=== PATIENT | female | born 1965 | race American Indian/Alaskan Native ===

== ENCOUNTER 2017-04-01 16:14 | Inpatient (IN) | payer OTHER, MEDICAID ==
[2017-04-01] MEDS ORDERED: hydrALAZINE 20 MG/ML SDV IVPUSH ONE (16:52)
[2017-04-01] MEDS ORDERED: HYDROmorphone 1 MG/ML Syringe IVPUSH ONE ×2 (16:53→17:45)
[2017-04-01] MEDS ORDERED: Ondansetron 4 MG/2 ML SDV IV ONE (16:53)
[2017-04-01] MEDS: Sodium Chloride 0.9% 10 ML Syringe FLUSH PRN ×2 (16:55→18:59)
[2017-04-01] MEDS ORDERED: Vancomycin 500 MG SDV IV ONE (16:55)
[2017-04-01 17:27] LABS: CHLORIDE,CL 99 mmol/L (101-111); SODIUM,NA 137 mmol/L (135-145)
[2017-04-01] MEDS ORDERED: Piperacillin/Tazobactam 3.375 GM in Sodium Chloride 0.9% 100 ML IV ONE (17:46)
--- NOTE | 2017-04-01 18:17 | EDM.PDOC ---
Scribed by Marlene Steward 04/01/17 [id number] for Henri Grajeda MD ED HPI GENERAL MEDICAL PROBLEM - General Chief Complaint: Lower Extremity Injury/Pain Stated Complaint: SENT FROM [facility] AT [facility], HIGH BP, [id number] Time Seen by Provider: 04/01/17 16:45 Source of Information: Reports: Patient, RN, RN Notes Reviewed History Limitations: Reports: No Limitations - History of Present Illness INITIAL COMMENTS - FREE TEXT/NARRATIVE: Sent from clinic for evaluation of accelerated hypertension with BP 215/220, 105 -110. Patient complained of pain and redness with swelling to chin that began yesterday after she tried to squeeze a pimple. Report fever and pain to chin and lower face. Location: Reports: Face Quality: Reports: Ache Severity: Severe Improves with: Reports: None Worsens with: Reports: None Associated Symptoms: Reports: No Other Symptoms - Related Data Allergies Allergy/AdvReac Type Severity Reaction Status Date / Time bupropion HCl Allergy Anxiety Verified 04/01/17 18:16 [From Wellbutrin] buspirone HCl [From BuSpar] Allergy Anxiety Verified 04/01/17 18:16 venlafaxine HCl Allergy Anxiety Verified 04/01/17 18:16 [From Effexor] Home Meds: Home Meds amLODIPine [Norvasc] 1 tab PO DAILY 03/08/15 [History] atorvaSTATin [Lipitor] 1 tab PO DAILY 03/08/15 [History] Acetaminophen [Tylenol Extra Strength] 1,000 mg PO Q6H PRN 03/10/15 [History] Albuterol [Proventil HFA] 1 puff INH QID PRN 03/10/15 [History] Cyclobenzaprine [Flexeril] 10 mg PO DAILY 04/01/17 [History] Past Medical History Cardiovascular History: Reports: High Cholesterol, Hypertension Respiratory History: Reports: Asthma Other Genitourinary History: ureteral stent Musculoskeletal History: Reports: Back Pain, Chronic, Fracture Other Musculoskeletal History: fibromyalgia Psychiatric History: Reports: Anxiety - Past Surgical History Female Surgical History: Reports: Section Musculoskeletal Surgical History: Reports: Carpal Tunnel Social & Family History - Tobacco Use Smoking Status *Q: Current Every Day Smoker Years of Tobacco use: 30 Packs/Tins Daily: 1 Used Tobacco, but Quit: No Second Hand Smoke Exposure: Yes - Alcohol Use Days Per Week of Alcohol Use: 0 Number of Drinks Per Day: 8 Total Drinks Per Week: 0 - Recreational Drug Use Recreational Drug Use: No Drug Use in Last 12 Months: No - Living Situation & Occupation Living situation: Reports: , with Family Occupation: Employed ED ROS GENERAL - Review of Systems Review Of Systems: ROS reveals no pertinent complaints other than HPI. ED EXAM, GENERAL - Physical Exam Exam: See Below Exam Limited By: No Limitations General Appearance: Alert, WD/WN, No Apparent Distress, Obese Eye Exam: Bilateral Eye: Normal Inspection Ears: Normal External Exam, Normal Canal, Hearing Grossly Normal, Normal TMs Nose: Normal Inspection, Normal Mucosa, No Blood Throat/Mouth: Normal Inspection, Normal Lips, Normal Teeth, Normal Gums, Normal Oropharynx, Normal Voice, No Airway Compromise Head: Other (Swelling to chin with erythema 3-4mm pustules and erythema with tenderness externally approximately 6-8cm to submanidbular jowel and bilateral mandibular face. ) Neck: Normal Inspection Respiratory/Chest: No Respiratory Distress, Lungs Clear, Normal Breath Sounds, No Accessory Muscle Use, Chest Non-Tender Cardiovascular: Regular Rate, Rhythm, Tachycardia GI/Abdominal: Other (benign obese abdomen) (Female) Exam: Deferred Rectal (Female) Exam: Deferred Back Exam: Normal Inspection, Full Range of Motion, NT Extremities: Normal Inspection, Normal Range of Motion, Non-Tender, Normal Capillary Refill, No Pedal Edema Neurological: Alert, Oriented, CN II-XII Intact, Normal Cognition, Normal Gait, Normal Reflexes, No Motor/Sensory Deficits Psychiatric: Normal Affect, Normal Mood Course - Vital Signs Last Recorded V/S: Last Vital Signs Temp 36.8 C 04/01/17 16:24 Pulse 110 H 04/01/17 17:07 Resp 18 04/01/17 17:07 BP 163/85 H 04/01/17 17:07 Pulse Ox 97 04/01/17 17:07 - Orders/Labs/Meds Orders: Active Orders 24 hr Category Date Time Status Peripheral IV Care [RC] . DIRECTED Care 04/01/17 16:50 Active CULTURE BLOOD [BC] Stat Lab 04/01/17 16:54 Received CULTURE BLOOD [BC] Stat Lab 04/01/17 16:59 Received CULTURE WOUND [RM] Stat Lab 04/01/17 16:59 Received Sodium Chloride 0.9% [Saline Flush] Med 04/01/17 16:50 Active 10 ml FLUSH ASDIRECTED PRN Blood Culture x2 Reflex Set [OM.PC] Stat Oth 04/01/17 16:50 Ordered Peripheral IV Insertion Adult [OM.PC] Stat Ot 04/01/17 16:50 Ordered Medication Orders Sodium Chloride (Saline Flush) 10 ml FLUSH ASDIRECTED PRN PRN Reason: Keep Vein Open Last Admin: 04/01/17 16:55 Dose: 10 ml Labs: Laboratory Tests 04/01/17 04/01/17 04/01/17 Range/Units 16:59 16:59 16:59 WBC 19.7 H (5.0-10.0) 10^3/uL RBC 4.79 (4.2-5.4) 10^6/uL Hgb 13.6 (12.0-16.0) g/dL Hct 40.9 (37.0-47.0) % MCV 85.4 (80-100) fL MCH 28.4 (27.0-34.0) pg MCHC 33.3 (33.0-35.0) g/dL Plt Count 482 H (150-450) 10^3/uL Neut % (Auto) 71.8 (42.2-75.2) % Lymph % (Auto) 18.0 L (20.5-50.1) % Millard % (Auto) 8.1 H (2-8) % Eos % (Auto) 1.9 (1.0-3.0) % Baso % (Auto) 0.2 (0.0-1.0) % Sodium 137 (135-145) mmol/L Potassium 3.1 L (3.6-5.0) mmol/L Chloride 99 L (101-111) mmol/L Carbon Dioxide 24.0 (21.0-31.0) mmol/L Anion Gap 17.1 BUN 8 (7-18) mg/dL Creatinine 0.6 (0.6-1.3) mg/dL Est Cr Clr Drug Dosing 100.94 mL/min Estimated GFR (MDRD) > 60 BUN/Creatinine Ratio 13.33 Glucose 135 H (74-105) mg/dL Lactic Acid 1.5 (0.5-2.2) mmol/L Calcium 9.1 (8.4-10.2) mg/dl Total Bilirubin 0.5 (0.2-1.0) mg/dL AST 19 (10-42) IU/L ALT 19 (10-60) IU/L Alkaline Phosphatase 110 (42-121) IU/L C-Reactive Protein (0.0-1.3) mg/dL Total Protein 8.3 H (6.7-8.2) g/dl Albumin 4.1 (3.2-5.5) g/dl Globulin 4.2 Albumin/Globulin Ratio 0.98 // Range/Units 16:59 WBC (5.0-10.0) 10^3/uL RBC (4.2-5.4) 10^6/uL Hgb (12.0-16.0) g/dL Hct (37.0-47.0) % MCV (80-100) fL MCH (27.0-34.0) pg MCHC (33.0-35.0) g/dL Plt Count (150-450) 10^3/uL Neut % (Auto) (42.2-75.2) % Lymph % (Auto) (20.5-50.1) % Millard % (Auto) (2-8) % Eos % (Auto) (1.0-3.0) % Baso % (Auto) (0.0-1.0) % Sodium (135-145) mmol/L Potassium (3.6-5.0) mmol/L Chloride (101-111) mmol/L Carbon Dioxide (21.0-31.0) mmol/L Anion Gap BUN (7-18) mg/dL Creatinine (0.6-1.3) mg/dL Est Cr Clr Drug Dosing mL/min Estimated GFR (MDRD) BUN/Creatinine Ratio Glucose (74-105) mg/dL Lactic Acid (0.5-2.2) mmol/L Calcium (8.4-10.2) mg/dl Total Bilirubin (0.2-1.0) mg/dL AST (10-42) IU/L ALT (10-60) IU/L Alkaline Phosphatase (42-121) IU/L C-Reactive Protein 3.5 H (0.0-1.3) mg/dL Total Protein (6.7-8.2) g/dl Albumin (3.2-5.5) g/dl Globulin Albumin/Globulin Ratio Meds: Medications Generic Name Dose Route Start Last Admin Trade Name Freq PRN Reason Stop Dose Admin Sodium Chloride 10 ml 04/01/17 16:50 04/01/17 16:55 Saline Flush FLUSH 10 ml ASDIRECTED PRN Administration Keep Vein Open Discontinued Medications Generic Name Dose Route Start Last Admin Trade Name Freq PRN Reason Stop Dose Admin Hydralazine HCl 20 mg 04/01/17 16:52 04/01/17 16:58 Apresoline IVPUSH 04/01/17 16:53 20 mg ONETIME ONE Administration Hydromorphone HCl 1 mg 04/01/17 16:53 04/01/17 16:58 Dilaudid IVPUSH 04/01/17 16:54 1 mg ONETIME ONE Administration Hydromorphone HCl 1 mg 04/01/17 17:45 04/01/17 17:53 Dilaudid IVPUSH 04/01/17 17:46 1 mg ONETIME ONE Administration Piperacillin Sod/Tazobactam 100 mls @ 200 mls/hr 04/01/17 17:46 Sod 3.375 gm/ Sodium Chloride IV 04/01/17 18:15 ONETIME ONE Ondansetron HCl 4 mg 04/01/17 16:53 04/01/17 16:58 Zofran IV 04/01/17 16:54 4 mg ONETIME ONE Administration Vancomycin HCl 1,650 mg 04/01/17 16:55 04/01/17 17:12 Vancomycin IV 04/01/17 16:56 1,650 mg ONETIME ONE Administration Departure - Departure Time of Disposition: 17:42 ((Admit to Dr. Morrison)) Disposition: Admitted As Inpatient 67 Condition: Serious Clinical Impression: Facial cellulitis, Accelerated hypertension - Discharge Information - My Orders Last 24 Hours: My Active Orders 04/01/17 16:50 Peripheral IV Care [RC] . DIRECTED Sodium Chloride 0.9% [Saline Flush] 10 ml FLUSH ASDIRECTED PRN Blood Culture x2 Reflex Set [OM.PC] Stat Peripheral IV Insertion Adult [OM.PC] Stat 04/01/17 16:54 CULTURE BLOOD [BC] Stat 04/01/17 16:59 CULTURE BLOOD [BC] Stat CULTURE WOUND [RM] Stat - Assessment/Plan Last 24 Hours: My Active Orders 04/01/17 16:50 Peripheral IV Care [RC] . DIRECTED Sodium Chloride 0.9% [Saline Flush] 10 ml FLUSH ASDIRECTED PRN Blood Culture x2 Reflex Set [OM.PC] Stat Peripheral IV Insertion Adult [OM.PC] Stat 04/01/17 16:54 CULTURE BLOOD [BC] Stat 04/01/17 16:59 CULTURE BLOOD [BC] Stat CULTURE WOUND [RM] Stat I have read and agree with the documentation that has been completed regarding this visit. By signing this record, I attest that the documentation was completed in my physical presence and is an accurate record of the encounter.
[2017-04-01] MEDS ORDERED: Magnesium Hydroxide 400 MG/5 ML Susp 30 ML Cup PO PRN (18:38)
[2017-04-01] MEDS ORDERED: Docusate Sodium 100 MG Cap PO PRN (18:38)
[2017-04-01] MEDS ORDERED: Albuterol 0.083% 2.5 MG/3 ML Neb Soln NEB PRN (18:38)
[2017-04-01] MEDS ORDERED: Zolpidem 5 MG Tab PO PRN (18:38)
[2017-04-01] MEDS ORDERED: Ondansetron 4 MG Tab.DIS PO PRN (18:38)
[2017-04-01] MEDS ORDERED: Polyethylene Glycol 3350 Powder 17 GM Packet PO PRN (18:38)
[2017-04-01] MEDS ORDERED: hydrALAZINE 20 MG/ML SDV IVPUSH PRN (18:41)
[2017-04-01] MEDS ORDERED: cloNIDine 0.1 MG Tab PO PRN (18:41)
[2017-04-01] MEDS ORDERED: Albuterol 6.7 GM Inhaler INH PRN (18:41)
[2017-04-01] MEDS ORDERED: Potassium Chloride 10 MEQ Tab.ER PO SCH (18:45)
[2017-04-01] MEDS ORDERED: NS + KCl 20mEq/L 1,000 ML IV SCH (18:45)
[2017-04-01] MEDS: Morphine 2 MG/ML Syringe IVPUSH PRN ×2 (18:59→21:40)
[2017-04-01] MEDS: Acetaminophen 500 MG Tab PO PRN (20:02)
[2017-04-01] MEDS: Piperacillin/Tazobactam 3.375 GM in Sodium Chloride 0.9% 100 ML IV SCH (21:46)
[2017-04-01] MEDS: Acetaminophen/oxyCODONE 325-5 MG Tab PO PRN (23:57)
[2017-04-02] MEDS: Morphine 2 MG/ML Syringe IVPUSH PRN ×3 (00:20→05:23)
--- NOTE | 2017-04-02 00:21 | HP ---
CHIEF COMPLAINT: Uncontrolled hypertension along with pain to the chin area. HISTORY OF PRESENT ILLNESS: Mrs. Jaron Armstrong is a 51-year-old female with medical history significant for hypertension, hyperlipidemia, depression, anxiety, impaired glucose tolerance in the past, nephrolithiasis, seasonal allergies, history of pyelonephritis in the past, eventually presented to the clinic today with complaints of chin pain and was noted to have uncontrolled hypertension. She was later transferred to the emergency room. While in the emergency room, she was noted to have acute cellulitis involving the chin and uncontrolled hypertension requiring admission to the hospital. At this time, the patient claims that she noticed some pain in the chin area last night around 7:00 p.m. She usually works in the [employer] and she works at night, so she slept and woke up late in the evening and noticed this swelling, which has been progressively getting worse since yesterday. She complains of increasing pain. She grades the pain as 8/10 in intensity, which is sharp in nature, aggravated on palpation, relieved partially with pain medication, radiating towards the upper cheek area associated with nausea, but no vomiting. Denies any fevers or chills, but she was noted to have mild sweating at home, for which she took some medication. She denies any ongoing chest pain, no shortness of breath, no abdominal pain, no vomiting, no diarrhea. She had history of similar complaints in the past where she had some pimple on the nose, but it was self-resolved, but this is much worse than her previous experience. The patient denied any history of chest pains on exertion. No history of dyspnea on exertion. No history of orthopnea or paroxysmal nocturnal dyspnea. The patient denied any history of hematemesis, hematochezia, or melanotic stools. Normal bowel and bladder habits otherwise. REVIEW OF SYSTEMS: A complete review of system including skin, ear, nose, and throat, cardiovascular system, respiratory system, gastrointestinal system, genitourinary system, hematology, oncology, neurology, allergy, immunology, constitutional were all evaluated and were negative except for the above-said notes. PAST MEDICAL HISTORY: Significant for hypertension, hyperlipidemia, nephrolithiasis, pyelonephritis, low back pain, impaired glucose tolerance in the past, chronic tobacco use, alcohol use. PAST SURGICAL HISTORY: Significant for carpal tunnel release, cystoscopy, hernia repair, laparoscopic cholecystectomy, laparotomy, section, spinal lumbar laminectomy, and microdiskectomy. FAMILY HISTORY: Significant for diabetes in her mother. Coronary artery disease and hypertension in her father. Bipolar disorder and anxiety disorder in her son. SOCIAL HISTORY: The patient is everyday smoker, smokes at least 1 pack of cigarette a day. History of occasional alcohol intake. ALLERGIES: The patient noted to have allergies to BuSpar and Effexor. PHYSICAL EXAMINATION: Vital Signs: Temperature of 98.2, pulse of 110, blood pressure 163/85, saturating at 97% on room air, respiratory rate of 18. General Appearance: The patient is well oriented to time, place, and person. Follows commands spontaneously. Cardiovascular System: S1, S2 heard with normal intensity. No gallops. Respiratory System: Clear to auscultation bilaterally. No wheeze. No crepitations. Abdomen: Soft. Bowel sounds positive. Nontender. No rigidity. Extremities: No edema in bilateral lower extremities. Neurology: No gross focal neurological deficit. Head and Neck: The patient is noted to have erythema, tenderness, and swelling to the lower chin part. She has secretions noted from the chin site, yellow in color. LABORATORY DATA: WBC 19.7, hemoglobin 13.6, hematocrit 40.9, platelet count 482. Sodium 137, potassium 3.1, chloride 99, bicarb 24, BUN 8, creatinine 0.6, glucose 135, lactic acid 1.5, AST 19, ALT 19. HOME MEDICATIONS: Home medications include: 1. Lipitor 1 tablet daily. 2. Norvasc 1 tablet daily. 3. Flexeril 10 mg daily. 4. Albuterol inhalation as needed 4 times a day. 5. Tylenol Extra Strength every 6 hours as needed for pain. ASSESSMENT: 1. Cellulitis involving the chin area. 2. Hypertension, uncontrolled. 3. Hyperlipidemia. 4. History of anxiety and depression. PLAN: 1. Cellulitis: The patient is noted to have cellulitis involving the chin area. We will start her on broad-spectrum antibiotics Zosyn and vancomycin. The patient had history of cellulitis in the past. We will obtain wound culture. She is noted to have mild secretions from the chin site. We will obtain blood cultures. Follow the culture reports and titrate the antibiotics as appropriate. 2. Hypertension, uncontrolled: The patient noted to have elevated blood pressure. She is just on Norvasc. We will continue with the Norvasc. We will have her on clonidine 0.1 mg every 4 hours as needed for systolic blood pressure greater than 160. We will add IV hydralazine 10 mg every 6 hourly for systolic blood pressure greater than 180, and we will closely follow the patient and titrate up the medication to optimize the blood pressure. Uncontrolled blood pressure could be resulting from the pain. 3. Pain: The patient is complaining of increasing pain. We will have her on IV morphine and oral Percocet for better pain control. 4. Hypokalemia: The patient is noted have mild hypokalemia with potassium of 3.1. We will replace with oral potassium chloride. 5. DVT prophylaxis: We will have her on Lovenox for DVT prophylaxis. 6. Code Status: The patient wants to be full code. Discussed with Dr. Grajeda, ER physician, regarding the plan of care. Discussed with the patient regarding the plan of care, reviewed the labs and medications, reviewed the old charts. [facility] /[id number]
[2017-04-02] MEDS: Acetaminophen/oxyCODONE 325-5 MG Tab PO PRN ×5 (05:21→23:05)
[2017-04-02] MEDS: Piperacillin/Tazobactam 3.375 GM in Sodium Chloride 0.9% 100 ML IV SCH ×3 (05:30→22:53)
[2017-04-02 07:12] LABS: CHLORIDE,CL 102 mmol/L (101-111); SODIUM,NA 138 mmol/L (135-145)
--- NOTE | 2017-04-02 09:55 | PCM.PN ---
- General Info Date of Service: 04/02/17 Admission Dx/Problem (Free Text): Patient was admitted for chin infection. The symptoms of the swelling and pain in the chin started on 03/31/17. Today patient states that pain is better but's the swelling has not changed. She is on opiates for pain as needed. She has temp of 100.5 Fahrenheit this morning but the room temp was 80. She denies feeling feverish, chills, nausea, vomiting, chest pain, shortness breath, abdominal pain, diarrhea, any other symptoms or concerns. She is drinking and eating normally. - Review of Systems General: Reports: No Symptoms HEENT: Denies: dysphasia, ear pain, eye pain Pulmonary: Reports: no symptoms Cardiovascular: Reports: No Symptoms Gastrointestinal: Reports: No symptoms Genitourinary: Reports: no symptoms Musculoskeletal: Reports: no symptoms - Patient Data Vitals - most recent: Last Vital Signs Temp 37.3 C 04/02/17 07:23 Pulse 96 04/02/17 07:23 Resp 20 04/02/17 07:23 BP 133/69 04/02/17 07:23 Pulse Ox 95 04/02/17 07:23 Weight - most recent: 108.771 kg I&O - last 24 hours: Intake & Output 04/01/17 04/02/17 04/02/17 22:59 06:59 14:59 Intake Total 1695 1316 Output Total 600 1800 Balance 1095 -484 Lab Results last 24 hrs: Laboratory Results - last 24 hr 04/01/17 04/02/17 04/02/17 Range/Units 22:18 06:35 06:35 WBC 12.0 H (5.0-10.0) 10^3/uL RBC 4.25 (4.2-5.4) 10^6/uL Hgb 12.0 (12.0-16.0) g/dL Hct 36.9 L (37.0-47.0) % MCV 86.8 (80-100) fL MCH 28.2 (27.0-34.0) pg MCHC 32.5 L (33.0-35.0) g/dL Plt Count 454 H (150-450) 10^3/uL Sodium 138 (135-145) mmol/L Potassium 3.7 (3.6-5.0) mmol/L Chloride 102 (101-111) mmol/L Carbon Dioxide 25.0 (21.0-31.0) mmol/L Anion Gap 14.7 BUN 8 (7-18) mg/dL Creatinine 0.7 (0.6-1.3) mg/dL Est Cr Clr Drug Dosing 86.52 mL/min Estimated GFR (MDRD) > 60 Glucose 122 H (74-105) mg/dL Lactic Acid 1.2 (0.5-2.2) mmol/L Calcium 8.6 (8.4-10.2) mg/dl Med Orders - Current: Current Medications Acetaminophen (Tylenol Extra Strength) 1,000 mg PO Q6H PRN PRN Reason: Pain Last Admin: 04/01/17 20:02 Dose: 1,000 mg Albuterol (Proventil Neb Soln) 2.5 mg NEB Q2H PRN PRN Reason: shortness of breath/wheezing Albuterol (Proventil Hfa) 0 gm INH QID PRN PRN Reason: Shortness of Breath Amlodipine Besylate (Norvasc) 5 mg PO DAILY [facility] Atorvastatin Calcium (Lipitor) 10 mg PO DAILY [facility] Clonidine HCl (Catapres) 0.1 mg PO Q4HR PRN PRN Reason: Hypertension Last Admin: 04/01/17 20:03 Dose: 0.1 mg Cyclobenzaprine HCl (Flexeril) 10 mg PO DAILY [facility] Docusate Sodium (Colace) 100 mg PO BID PRN PRN Reason: Constipation Enoxaparin Sodium (Lovenox) 40 mg SUBCUT DAILY [facility] Hydralazine HCl (Apresoline) 10 mg IVPUSH Q6H PRN PRN Reason: Hypertension Piperacillin Sod/Tazobactam (Sod 3.375 gm/ Sodium Chloride) 100 mls @ 200 mls/ hr IV Q8HR [facility] Last Admin: 04/02/17 05:30 Dose: 200 mls/hr Potassium Chloride/Sodium Chloride (Normal Saline With 20 Meq Kcl) 1,000 mls @ 75 mls/hr IV ASDIRECTED [facility] Last Admin: 04/01/17 19:38 Dose: 75 mls/hr Vancomycin HCl 1.25 gm/ Sodium (Chloride) 250 mls @ 166.667 mls/hr IV Q12H [facility] Last Admin: 04/02/17 06:33 Dose: 166.667 mls/hr Magnesium Hydroxide (Milk Of Magnesia) 30 ml PO Q12H PRN PRN Reason: Constipation Morphine Sulfate (Morphine) 2 mg IVPUSH Q2H PRN PRN Reason: Pain (severe 7-10) Last Admin: 04/02/17 05:23 Dose: 2 mg Ondansetron HCl (Zofran Odt) 4 mg PO Q4H PRN PRN Reason: nausea, able to take PO Oxycodone/Acetaminophen (Percocet 325-5 Mg) 1 tab PO Q4H PRN PRN Reason: Pain (moderate 4-6) Last Admin: 04/02/17 09:33 Dose: 1 tab Polyethylene Glycol (Miralax) 17 gm PO DAILY PRN PRN Reason: Constipation Sodium Chloride (Saline Flush) 10 ml FLUSH ASDIRECTED PRN PRN Reason: Keep Vein Open Last Admin: 04/01/17 18:59 Dose: 10 ml Vancomycin HCl (Pharmacy To Dose - Vancomycin) 1 dose .XX ASDIRECTED SHEYLA Zolpidem Tartrate (Ambien) 5 mg PO BEDTIME PRN PRN Reason: Sleep Last Admin: 04/01/17 21:46 Dose: 5 mg Discontinued Medications Hydralazine HCl (Apresoline) 20 mg IVPUSH ONETIME ONE Stop: 04/01/17 16:53 Last Admin: 04/01/17 16:58 Dose: 20 mg Hydromorphone HCl (Dilaudid) 1 mg IVPUSH ONETIME ONE Stop: 04/01/17 16:54 Last Admin: 04/01/17 16:58 Dose: 1 mg Hydromorphone HCl (Dilaudid) 1 mg IVPUSH ONETIME ONE Stop: 04/01/17 17:46 Last Admin: 04/01/17 17:53 Dose: 1 mg Piperacillin Sod/Tazobactam (Sod 3.375 gm/ Sodium Chloride) 100 mls @ 200 mls/ hr IV ONETIME ONE Stop: 04/01/17 18:15 Last Admin: 04/01/17 19:41 Dose: 200 mls/hr Ondansetron HCl (Zofran) 4 mg IV ONETIME ONE Stop: 04/01/17 16:54 Last Admin: 04/01/17 16:58 Dose: 4 mg Potassium Chloride (Klor-Con 10) 20 meq PO TIDMEALS SHEYLA Last Admin: 04/01/17 20:01 Dose: 20 meq Vancomycin HCl (Vancomycin) 1,650 mg IV ONETIME ONE Stop: 04/01/17 16:56 Last Admin: 04/01/17 17:12 Dose: 1,650 mg - Exam General: alert, oriented, cooperative, no acute distress. No: mild distress, moderate distress, severe distress, sedated, lethargic, obtunded HEENT: Pupils equal, Pupils reactive, EOMI, Mucous membr. moist/pink, Other ( Lower chin swelling and redness appreciated) Neck: supple, trachea midline, no JVD Lungs: Clear to auscultation, Normal respiratory effort Cardiovascular: Regular Rate, Regular Rhythm Abdomen: bowel sounds present, soft, no tenderness, no distension Extremities: no edema, normal pulses Psy/Mental Status: normal affect, normal mood - Problem List & Annotations (1) Hypokalemia SNOMED Code(s): 22897212 Code(s): E87.6 - HYPOKALEMIA Status: Acute Current Visit: Yes (2) Accelerated hypertension SNOMED Code(s): 51825977 Code(s): I10 - ESSENTIAL (PRIMARY) HYPERTENSION Status: Acute Current Visit: Yes (3) Facial cellulitis SNOMED Code(s): 299697387 Code(s): L03.211 - CELLULITIS OF FACE Status: Acute Current Visit: Yes - Problem List Review Problem List Initiated/Reviewed/Updated: Yes - My Orders Last 24 Hours: My Active Orders 04/03/17 05:11 BASIC METABOLIC PANEL,BMP [CHEM] AM CBC WITH AUTO DIFF [HEME] AM CRP [C-REACTIVE PROTEIN] [CHEM] AM - Plan Plan:: Facial cellulitis Continue with Zosyn and vancomycin Awaiting blood cultures Continue pain management as per order Leukocytosis, most likely from cellulitis WBC on admission were 19.7 Trending downwards to 12.0 today Essential benign Hypertension -Was elevated yesterday We'll continue with Norvasc that she takes at home Continue his clonidine and hydralazine as needed for systolic blood pressure greater than 160 Monitor blood pressure Facial pain from cellulitis Continue with Percocet and IV morphine as needed for pain Hypokalemia Resolved Replaced orally Continue Lovenox for DVT prophylaxis
[2017-04-02] MEDS: Enoxaparin 40 MG/0.4 ML Syringe SUBCUT SCH (09:56)
[2017-04-02] MEDS: amLODIPine 5 MG Tab PO SCH (09:57)
[2017-04-02] MEDS: Cyclobenzaprine 10 MG Tab PO SCH (09:57)
[2017-04-02] MEDS: atorvaSTATin 10 MG Tab PO SCH (09:57)
[2017-04-02] MEDS: Acetaminophen 500 MG Tab PO PRN (21:02)
[2017-04-03] MEDS: Acetaminophen/oxyCODONE 325-5 MG Tab PO PRN (03:18)
[2017-04-03] MEDS: Acetaminophen 500 MG Tab PO PRN (05:27)
[2017-04-03 06:45] LABS: CHLORIDE,CL 104 mmol/L (101-111); SODIUM,NA 141 mmol/L (135-145)
[2017-04-03] MEDS: Piperacillin/Tazobactam 3.375 GM in Sodium Chloride 0.9% 100 ML IV SCH ×3 (06:47→22:03)
[2017-04-03] MEDS ORDERED: Iopamidol 612 MG/ML 50 ML SDV IVPUSH ONE (09:25)
--- NOTE | 2017-04-03 09:40 | PCM.PN ---
- General Info Date of Service: 04/03/17 Admission Dx/Problem (Free Text): Patient was admitted for chin infection. The symptoms of swelling and pain in the chin started on 03/31/17. Today patient states that she still feels the same. She still having pain and swelling in the chin. She reporting pain radiating to the neck. She is still feeling nauseous. Her temperature has been normal but she has been taking Tylenol for headache. She is on opiates for pain as needed. Fahrenheit this morning but the room temp was 80. She denies feeling feverish, chills, nausea, vomiting, chest pain, shortness breath, abdominal pain , diarrhea, any other symptoms or concerns. She is drinking and eating normally. - Patient Data Vitals - most recent: Last Vital Signs Temp 36.7 C 04/03/17 06:57 Pulse 88 04/03/17 06:57 Resp 20 04/03/17 06:57 BP 132/71 04/03/17 06:57 Pulse Ox 97 04/03/17 06:57 Weight - most recent: 108.771 kg I&O - last 24 hours: Intake & Output 04/02/17 04/03/17 04/03/17 22:59 06:59 14:59 Intake Total 755 649 Output Total 2500 1800 Balance -1745 -1151 Lab Results last 24 hrs: Laboratory Results - last 24 hr 04/03/17 04/03/17 04/03/17 Range/Units 05:30 05:30 05:30 WBC 9.8 (5.0-10.0) 10^3/uL RBC 4.34 (4.2-5.4) 10^6/uL Hgb 12.2 (12.0-16.0) g/dL Hct 38.7 (37.0-47.0) % MCV 89.2 (80-100) fL MCH 28.1 (27.0-34.0) pg MCHC 31.5 L (33.0-35.0) g/dL Plt Count 448 (150-450) 10^3/uL Neut % (Auto) 58.0 (42.2-75.2) % Lymph % (Auto) 26.6 (20.5-50.1) % [place] % (Auto) 8.4 H (2-8) % Eos % (Auto) 6.9 H (1.0-3.0) % Baso % (Auto) 0.1 (0.0-1.0) % Sodium 141 (135-145) mmol/L Potassium 4.1 (3.6-5.0) mmol/L Chloride 104 (101-111) mmol/L Carbon Dioxide 27.0 (21.0-31.0) mmol/L Anion Gap 14.1 BUN 9 (7-18) mg/dL Creatinine 0.7 (0.6-1.3) mg/dL Est Cr Clr Drug Dosing 86.52 mL/min Estimated GFR (MDRD) > 60 Glucose 125 H (74-105) mg/dL Calcium 8.9 (8.4-10.2) mg/dl C-Reactive Protein 13.9 H (0.0-1.3) mg/dL Med Orders - Current: Current Medications Acetaminophen (Tylenol Extra Strength) 1,000 mg PO Q6H PRN PRN Reason: Pain Last Admin: 04/03/17 05:27 Dose: 1,000 mg Albuterol (Proventil Neb Soln) 2.5 mg NEB Q2H PRN PRN Reason: shortness of breath/wheezing Albuterol (Proventil Hfa) 0 gm INH QID PRN PRN Reason: Shortness of Breath Amlodipine Besylate (Norvasc) 5 mg PO DAILY [facility] Last Admin: 04/02/17 09:57 Dose: 5 mg Atorvastatin Calcium (Lipitor) 10 mg PO DAILY [facility] Last Admin: 04/02/17 09:57 Dose: 10 mg Clonidine HCl (Catapres) 0.1 mg PO Q4HR PRN PRN Reason: Hypertension Last Admin: 04/01/17 20:03 Dose: 0.1 mg Cyclobenzaprine HCl (Flexeril) 10 mg PO DAILY [facility] Last Admin: 04/02/17 09:57 Dose: 10 mg Docusate Sodium (Colace) 100 mg PO BID PRN PRN Reason: Constipation Enoxaparin Sodium (Lovenox) 40 mg SUBCUT DAILY [facility] Last Admin: 04/02/17 09:56 Dose: 40 mg Hydralazine HCl (Apresoline) 10 mg IVPUSH Q6H PRN PRN Reason: Hypertension Piperacillin Sod/Tazobactam (Sod 3.375 gm/ Sodium Chloride) 100 mls @ 200 mls/ hr IV Q8HR [facility] Last Infusion: 04/03/17 06:48 Dose: Infused Vancomycin HCl 1.25 gm/ Sodium (Chloride) 250 mls @ 166.667 mls/hr IV Q12H [facility] Last Admin: 04/03/17 05:17 Dose: 166.667 mls/hr Magnesium Hydroxide (Milk Of Magnesia) 30 ml PO Q12H PRN PRN Reason: Constipation Morphine Sulfate (Morphine) 2 mg IVPUSH Q2H PRN PRN Reason: Pain (severe 7-10) Last Admin: 04/02/17 05:23 Dose: 2 mg Ondansetron HCl (Zofran Odt) 4 mg PO Q4H PRN PRN Reason: nausea, able to take PO Oxycodone/Acetaminophen (Percocet 325-5 Mg) 1 tab PO Q4H PRN PRN Reason: Pain (moderate 4-6) Last Admin: 04/03/17 03:18 Dose: 1 tab Polyethylene Glycol (Miralax) 17 gm PO DAILY PRN PRN Reason: Constipation Sodium Chloride (Saline Flush) 10 ml FLUSH ASDIRECTED PRN PRN Reason: Keep Vein Open Last Admin: 04/01/17 18:59 Dose: 10 ml Vancomycin HCl (Pharmacy To Dose - Vancomycin) 1 dose .XX ASDIRECTED [facility] Zolpidem Tartrate (Ambien) 5 mg PO BEDTIME PRN PRN Reason: Sleep Last Admin: 04/01/17 21:46 Dose: 5 mg Discontinued Medications Hydralazine HCl (Apresoline) 20 mg IVPUSH ONETIME ONE Stop: 04/01/17 16:53 Last Admin: 04/01/17 16:58 Dose: 20 mg Hydromorphone HCl (Dilaudid) 1 mg IVPUSH ONETIME ONE Stop: 04/01/17 16:54 Last Admin: 04/01/17 16:58 Dose: 1 mg Hydromorphone HCl (Dilaudid) 1 mg IVPUSH ONETIME ONE Stop: 04/01/17 17:46 Last Admin: 04/01/17 17:53 Dose: 1 mg Piperacillin Sod/Tazobactam (Sod 3.375 gm/ Sodium Chloride) 100 mls @ 200 mls/ hr IV ONETIME ONE Stop: 04/01/17 18:15 Last Admin: 04/01/17 19:41 Dose: 200 mls/hr Potassium Chloride/Sodium Chloride (Normal Saline With 20 Meq Kcl) 1,000 mls @ 75 mls/hr IV ASDIRECTED [facility] Last Admin: 04/01/17 19:38 Dose: 75 mls/hr Iopamidol (Isovue-300 (61%)) 50 ml IVPUSH ONETIME ONE Stop: 04/03/17 09:26 Ondansetron HCl (Zofran) 4 mg IV ONETIME ONE Stop: 04/01/17 16:54 Last Admin: 04/01/17 16:58 Dose: 4 mg Potassium Chloride (Klor-Con 10) 20 meq PO TIDMEALS [facility] Last Admin: 04/01/17 20:01 Dose: 20 meq Vancomycin HCl (Vancomycin) 1,650 mg IV ONETIME ONE Stop: 04/01/17 16:56 Last Admin: 04/01/17 17:12 Dose: 1,650 mg - Exam General: alert, oriented, cooperative, no acute distress. No: moderate distress , severe distress, sedated, lethargic, obtunded HEENT: Pupils equal, Pupils reactive, EOMI, Mucous membr. moist/pink, Other ( Chin swelling and redness is slightly better than yesterday her submandibular swelling is still the same. Her chin is expressing scant of pus. However still very tender and indurated. Mouth and throat are patent and normal) Lungs: Clear to auscultation, Normal respiratory effort Cardiovascular: Regular Rate, Regular Rhythm Abdomen: bowel sounds present, soft, no tenderness, no distension Back Exam: Normal Inspection, Full Range of Motion Extremities: no edema, normal pulses, no tenderness/swelling, no clubbing, no cyanosis Skin: warm, dry, intact Neurological: no new focal deficit Psy/Mental Status: alert, normal affect, normal mood - Problem List & Annotations (1) Hypokalemia SNOMED Code(s): 95449952 Code(s): E87.6 - HYPOKALEMIA Status: Acute Current Visit: Yes (2) Accelerated hypertension SNOMED Code(s): 94799545 Code(s): I10 - ESSENTIAL (PRIMARY) HYPERTENSION Status: Acute Current Visit: Yes (3) Facial cellulitis SNOMED Code(s): 797962086 Code(s): L03.211 - CELLULITIS OF FACE Status: Acute Current Visit: Yes - Problem List Review Problem List Initiated/Reviewed/Updated: Yes - My Orders Last 24 Hours: My Active Orders 04/02/17 10:49 Convert IV to Saline Lock [OM.PC] Routine 04/03/17 09:02 Soft Tissue Neck w Cont [CT] Routine - Plan Plan:: Facial cellulitis -WBC on admission were 19.7. Trending downwards to 9.8 today -CRP on admission 3.5. Today 13.9. -Continue with Zosyn and vancomycin -Wound culture grew presumptive staph aureus and still awaiting ID and sensitivity Awaiting blood cultures Continue pain management as per order -CT of the soft tissue of the neck with contrast to rule out abscess Essential benign Hypertension -Fairly controlled -I will increase her home Norvasc from 5-10 mg daily Continue his clonidine and hydralazine as needed for systolic blood pressure greater than 160 Monitor blood pressure Facial pain from cellulitis Continue with Percocet and IV morphine as needed for pain Hypokalemia Resolved Replaced orally Continue Lovenox for DVT prophylaxis
[2017-04-03] MEDS: Enoxaparin 40 MG/0.4 ML Syringe SUBCUT SCH (09:59)
[2017-04-03] MEDS: atorvaSTATin 10 MG Tab PO SCH (10:00)
[2017-04-03] MEDS: amLODIPine 5 MG Tab PO SCH ×2 (10:03→10:55)
[2017-04-03] MEDS: Cyclobenzaprine 10 MG Tab PO SCH (10:04)
[2017-04-03] MEDS: Ketorolac 30 MG/ML SDV IVPUSH PRN ×2 (11:08→17:36)
[2017-04-04] MEDS: Piperacillin/Tazobactam 3.375 GM in Sodium Chloride 0.9% 100 ML IV SCH (06:10)
[2017-04-04] MEDS: atorvaSTATin 10 MG Tab PO SCH (09:51)
[2017-04-04] MEDS: Cyclobenzaprine 10 MG Tab PO SCH (09:51)
[2017-04-04] MEDS: Enoxaparin 40 MG/0.4 ML Syringe SUBCUT SCH (09:51)
[2017-04-04] MEDS: amLODIPine 5 MG Tab PO SCH (09:52)
[2017-04-04] MEDS ORDERED: Magnesium Hydroxide 400 MG/5 ML Susp 30 ML Cup PO PRN (15:06)
[2017-04-04] MEDS: Sodium Chloride 0.9% 10 ML Syringe FLUSH PRN (17:01)
[2017-04-04] MEDS: Ibuprofen 600 MG Tab PO PRN (17:22)
--- NOTE | 2017-04-04 23:56 | PCM.PN ---
- General Info Date of Service: 04/04/17 Admission Dx/Problem (Free Text): Chin cellulitis and abscess Subjective Update: Patient was admitted for chin infection. The symptoms of swelling and pain in the chin started on 03/31/17. Today patient states that she she starts feeling better today. Her chins pain and swelling improved. Her neck pain and headache improved on Toradol. She denies feeling feverish, chills, nausea, vomiting, chest pain, shortness breath, abdominal pain, diarrhea, any other symptoms or concerns. She is drinking and eating normally. - Patient Data Vitals - most recent: Last Vital Signs Temp 36.2 C 04/04/17 21:00 Pulse 82 04/04/17 21:00 Resp 18 04/04/17 21:00 BP 129/72 04/04/17 21:00 Pulse Ox 97 04/04/17 21:00 Weight - most recent: 108.771 kg I&O - last 24 hours: Intake & Output 04/04/17 04/04/17 04/05/17 14:59 22:59 06:59 Intake Total 250 Balance 250 Med Orders - Current: Current Medications Acetaminophen (Tylenol Extra Strength) 1,000 mg PO Q6H PRN PRN Reason: Pain Last Admin: 04/03/17 05:27 Dose: 1,000 mg Albuterol (Proventil Neb Soln) 2.5 mg NEB Q2H PRN PRN Reason: shortness of breath/wheezing Albuterol (Proventil Hfa) 0 gm INH QID PRN PRN Reason: Shortness of Breath Amlodipine Besylate (Norvasc) 10 mg PO DAILY [facility] Last Admin: 04/04/17 09:52 Dose: 10 mg Atorvastatin Calcium (Lipitor) 10 mg PO DAILY [facility] Last Admin: 04/04/17 09:51 Dose: 10 mg Clonidine HCl (Catapres) 0.1 mg PO Q4HR PRN PRN Reason: Hypertension Last Admin: 04/01/17 20:03 Dose: 0.1 mg Cyclobenzaprine HCl (Flexeril) 10 mg PO DAILY [facility] Last Admin: 04/04/17 09:51 Dose: 10 mg Docusate Sodium (Colace) 100 mg PO BID PRN PRN Reason: Constipation Enoxaparin Sodium (Lovenox) 40 mg SUBCUT DAILY [facility] Last Admin: 04/04/17 09:51 Dose: 40 mg Hydralazine HCl (Apresoline) 10 mg IVPUSH Q6H PRN PRN Reason: Hypertension Vancomycin HCl 1.25 gm/ Sodium (Chloride) 250 mls @ 166.667 mls/hr IV Q12H [facility] Last Admin: 04/04/17 17:21 Dose: 166.667 mls/hr Ibuprofen (Motrin) 600 mg PO Q8H PRN PRN Reason: Pain, headache Last Admin: 04/04/17 17:22 Dose: 600 mg Magnesium Hydroxide (Milk Of Magnesia) 30 ml PO Q6H PRN PRN Reason: For constipation Morphine Sulfate (Morphine) 2 mg IVPUSH Q2H PRN PRN Reason: Pain (severe 7-10) Last Admin: 04/02/17 05:23 Dose: 2 mg Ondansetron HCl (Zofran Odt) 4 mg PO Q4H PRN PRN Reason: nausea, able to take PO Oxycodone/Acetaminophen (Percocet 325-5 Mg) 1 tab PO Q4H PRN PRN Reason: Pain (moderate 4-6) Last Admin: 04/03/17 03:18 Dose: 1 tab Polyethylene Glycol (Miralax) 17 gm PO DAILY PRN PRN Reason: Constipation Sodium Chloride (Saline Flush) 10 ml FLUSH ASDIRECTED PRN PRN Reason: Keep Vein Open Last Admin: 04/04/17 17:01 Dose: 10 ml Vancomycin HCl (Pharmacy To Dose - Vancomycin) 1 dose .XX ASDIRECTED [facility] Zolpidem Tartrate (Ambien) 5 mg PO BEDTIME PRN PRN Reason: Sleep Last Admin: 04/01/17 21:46 Dose: 5 mg Discontinued Medications Amlodipine Besylate (Norvasc) 5 mg PO DAILY [facility] Last Admin: 04/03/17 10:55 Dose: Not Given Hydralazine HCl (Apresoline) 20 mg IVPUSH ONETIME ONE Stop: 04/01/17 16:53 Last Admin: 04/01/17 16:58 Dose: 20 mg Hydromorphone HCl (Dilaudid) 1 mg IVPUSH ONETIME ONE Stop: 04/01/17 16:54 Last Admin: 04/01/17 16:58 Dose: 1 mg Hydromorphone HCl (Dilaudid) 1 mg IVPUSH ONETIME ONE Stop: 04/01/17 17:46 Last Admin: 04/01/17 17:53 Dose: 1 mg Piperacillin Sod/Tazobactam (Sod 3.375 gm/ Sodium Chloride) 100 mls @ 200 mls/ hr IV ONETIME ONE Stop: 04/01/17 18:15 Last Admin: 04/01/17 19:41 Dose: 200 mls/hr Piperacillin Sod/Tazobactam (Sod 3.375 gm/ Sodium Chloride) 100 mls @ 200 mls/ hr IV Q8HR [facility] Last Admin: 04/04/17 06:10 Dose: 200 mls/hr Potassium Chloride/Sodium Chloride (Normal Saline With 20 Meq Kcl) 1,000 mls @ 75 mls/hr IV ASDIRECTED [facility] Last Admin: 04/01/17 19:38 Dose: 75 mls/hr Iopamidol (Isovue-300 (61%)) 50 ml IVPUSH ONETIME ONE Stop: 04/03/17 09:26 Last Admin: 04/03/17 11:33 Dose: 50 ml Ketorolac Tromethamine (Toradol) 30 mg IVPUSH Q6H PRN PRN Reason: sever pain Stop: 04/04/17 10:27 Last Admin: 04/03/17 17:36 Dose: 30 mg Magnesium Hydroxide (Milk Of Magnesia) 30 ml PO Q12H PRN PRN Reason: Constipation Ondansetron HCl (Zofran) 4 mg IV ONETIME ONE Stop: 04/01/17 16:54 Last Admin: 04/01/17 16:58 Dose: 4 mg Potassium Chloride (Klor-Con 10) 20 meq PO TIDMEALS [facility] Last Admin: 04/01/17 20:01 Dose: 20 meq Vancomycin HCl (Vancomycin) 1,650 mg IV ONETIME ONE Stop: 04/01/17 16:56 Last Admin: 04/01/17 17:12 Dose: 1,650 mg - Exam General: alert, oriented, cooperative, no acute distress, moderate distress HEENT: Pupils equal, Pupils reactive, EOMI, Mucous membr. moist/pink, Other ( Her chin swelling or redness improved. She still have some submandibular swelling but improved.) Neck: supple, trachea midline, no JVD Lungs: Clear to auscultation, Normal respiratory effort Cardiovascular: Regular Rate, Regular Rhythm Abdomen: bowel sounds present, soft, no tenderness, no distension Extremities: no edema, normal pulses, no tenderness/swelling, no clubbing Neurological: no new focal deficit Psy/Mental Status: alert, normal affect - Problem List & Annotations (1) Hypokalemia SNOMED Code(s): 93831941 Code(s): E87.6 - HYPOKALEMIA Status: Acute Current Visit: Yes (2) Accelerated hypertension SNOMED Code(s): 99384797 Code(s): I10 - ESSENTIAL (PRIMARY) HYPERTENSION Status: Acute Current Visit: Yes (3) Facial cellulitis SNOMED Code(s): 020022935 Code(s): L03.211 - CELLULITIS OF FACE Status: Acute Current Visit: Yes - Problem List Review Problem List Initiated/Reviewed/Updated: Yes - My Orders Last 24 Hours: My Active Orders 04/04/17 15:06 Ibuprofen [Motrin] 600 mg PO Q8H PRN Magnesium Hydroxide [Milk of Magnesia] 30 ml PO Q6H PRN 04/05/17 05:11 BASIC METABOLIC PANEL,BMP [CHEM] AM CBC WITH AUTO DIFF [HEME] AM CRP [C-REACTIVE PROTEIN] [CHEM] AM - Plan Plan:: Facial cellulitis Chin's wound culture showed MRSA -WBC on admission were 19.7. WBC back to normal -Stop Zosyn and continue with vancomycin Awaiting blood cultures Continue pain management as per order -CT of the soft tissue of the neck with contrast was done on 04/03/17 and showed fluid collection of 9 mm in size. At that time I spoke to Dr. Huerta, ENT specialist in [place] and discussed the case with her. She recommended that he continue on IV antibiotic for 1 more day and reevaluate and if patient is improving then she can follow up as an outpatient but if not she can be transferred to [place] for possible I&D. Patient wanted to wait here and continue with IV antibiotic. Today she felt better so we will continue on his IV treatment one more day and reevaluate tomorrow for possible discharge if she continues to improve. Essential benign Hypertension -Fairly controlled home Norvasc was increased from 5-10 mg daily Continue clonidine and hydralazine as needed for systolic blood pressure greater than 160 Monitor blood pressure Facial pain from cellulitis Continue with Percocet and IV morphine as needed for pain Hypokalemia Resolved Replaced orally Continue Lovenox for DVT prophylaxis
[2017-04-05 06:18] LABS: CHLORIDE,CL 102 mmol/L (101-111); SODIUM,NA 139 mmol/L (135-145)
[2017-04-05] MEDS: Cyclobenzaprine 10 MG Tab PO SCH (08:23)
[2017-04-05] MEDS: atorvaSTATin 10 MG Tab PO SCH (08:23)
[2017-04-05] MEDS: amLODIPine 5 MG Tab PO SCH (08:23)
[2017-04-05] MEDS: Enoxaparin 40 MG/0.4 ML Syringe SUBCUT SCH (08:24)
[2017-04-05] MEDS: Ibuprofen 600 MG Tab PO PRN ×2 (08:25→17:55)
[2017-04-05] MEDS ORDERED: ClonazePAM 0.5 MG Tab PO PRN (12:55)
--- NOTE | 2017-04-05 12:57 | PCM.PN ---
- General Info Date of Service: 04/05/17 Admission Dx/Problem (Free Text): Chin cellulitis and abscess Subjective Update: Patient was admitted for chin infection. The symptoms of swelling and pain in the chin started on 03/31/17. Today patient states that she had the chills with nausea early this morning and at that time her temperature was 100.9 Fahrenheit. However she admitted that her chins pain and swelling continued to improve. And her facial pain is limited to submandibular and only when she touches on it. Her neck pain and headache markedly improved but still taking ibuprofen. Patient admitted being anxious especially if she heard that the light in her house is off and she is having some social issue on housing issue. She denies being suicidal or homicidal. She wants to have something for anxiety. She states she is to be on Celexa and Klonopin in the past and she refers to be back on same.. She denies vomiting, chest pain, shortness breath, abdominal pain, diarrhea, any other symptoms or concerns. She is drinking and eating normally. - Patient Data Vitals - most recent: Last Vital Signs Temp 36.8 C 04/05/17 11:00 Pulse 85 04/05/17 11:00 Resp 20 04/05/17 11:00 BP 146/75 H 04/05/17 11:00 Pulse Ox 95 04/05/17 11:00 Weight - most recent: 108.771 kg I&O - last 24 hours: Intake & Output 04/04/17 04/05/17 04/05/17 22:59 06:59 14:59 Intake Total 250 1200 Output Total 2600 Balance 250 -1400 Lab Results last 24 hrs: Laboratory Results - last 24 hr 04/05/17 04/05/17 04/05/17 Range/Units 05:30 05:30 05:30 WBC 9.5 (5.0-10.0) 10^3/uL RBC 4.60 (4.2-5.4) 10^6/uL Hgb 13.1 (12.0-16.0) g/dL Hct 40.3 (37.0-47.0) % MCV 87.6 (80-100) fL MCH 28.5 (27.0-34.0) pg MCHC 32.5 L (33.0-35.0) g/dL Plt Count 516 H (150-450) 10^3/uL Neut % (Auto) 57.2 (42.2-75.2) % Lymph % (Auto) 28.2 (20.5-50.1) % [place] % (Auto) 7.8 (2-8) % Eos % (Auto) 6.7 H (1.0-3.0) % Baso % (Auto) 0.1 (0.0-1.0) % Sodium 139 (135-145) mmol/L Potassium 4.3 (3.6-5.0) mmol/L Chloride 102 (101-111) mmol/L Carbon Dioxide 25.0 (21.0-31.0) mmol/L Anion Gap 16.3 BUN 12 (7-18) mg/dL Creatinine 0.6 (0.6-1.3) mg/dL Est Cr Clr Drug Dosing 100.94 mL/min Estimated GFR (MDRD) > 60 Glucose 123 H (74-105) mg/dL Calcium 9.1 (8.4-10.2) mg/dl C-Reactive Protein 10.7 H (0.0-1.3) mg/dL Med Orders - Current: Current Medications Acetaminophen (Tylenol Extra Strength) 1,000 mg PO Q6H PRN PRN Reason: Pain Last Admin: 04/03/17 05:27 Dose: 1,000 mg Albuterol (Proventil Neb Soln) 2.5 mg NEB Q2H PRN PRN Reason: shortness of breath/wheezing Albuterol (Proventil Hfa) 0 gm INH QID PRN PRN Reason: Shortness of Breath Amlodipine Besylate (Norvasc) 10 mg PO DAILY [facility] Last Admin: 04/05/17 08:23 Dose: 10 mg Atorvastatin Calcium (Lipitor) 10 mg PO DAILY [facility] Last Admin: 04/05/17 08:23 Dose: 10 mg Clonidine HCl (Catapres) 0.1 mg PO Q4HR PRN PRN Reason: Hypertension Last Admin: 04/01/17 20:03 Dose: 0.1 mg Cyclobenzaprine HCl (Flexeril) 10 mg PO DAILY [facility] Last Admin: 04/05/17 08:23 Dose: 10 mg Docusate Sodium (Colace) 100 mg PO BID PRN PRN Reason: Constipation Enoxaparin Sodium (Lovenox) 40 mg SUBCUT DAILY [facility] Last Admin: 04/05/17 08:24 Dose: 40 mg Hydralazine HCl (Apresoline) 10 mg IVPUSH Q6H PRN PRN Reason: Hypertension Vancomycin HCl 1.25 gm/ Sodium (Chloride) 250 mls @ 166.667 mls/hr IV Q12H [facility] Last Admin: 04/05/17 05:06 Dose: 166.667 mls/hr Ibuprofen (Motrin) 600 mg PO Q8H PRN PRN Reason: Pain, headache Last Admin: 04/05/17 08:25 Dose: 600 mg Magnesium Hydroxide (Milk Of Magnesia) 30 ml PO Q6H PRN PRN Reason: For constipation Morphine Sulfate (Morphine) 2 mg IVPUSH Q2H PRN PRN Reason: Pain (severe 7-10) Last Admin: 04/02/17 05:23 Dose: 2 mg Ondansetron HCl (Zofran Odt) 4 mg PO Q4H PRN PRN Reason: nausea, able to take PO Oxycodone/Acetaminophen (Percocet 325-5 Mg) 1 tab PO Q4H PRN PRN Reason: Pain (moderate 4-6) Last Admin: 04/03/17 03:18 Dose: 1 tab Polyethylene Glycol (Miralax) 17 gm PO DAILY PRN PRN Reason: Constipation Sodium Chloride (Saline Flush) 10 ml FLUSH ASDIRECTED PRN PRN Reason: Keep Vein Open Last Admin: 04/04/17 17:01 Dose: 10 ml Vancomycin HCl (Pharmacy To Dose - Vancomycin) 1 dose .XX ASDIRECTED [facility] Zolpidem Tartrate (Ambien) 5 mg PO BEDTIME PRN PRN Reason: Sleep Last Admin: 04/01/17 21:46 Dose: 5 mg Discontinued Medications Amlodipine Besylate (Norvasc) 5 mg PO DAILY [facility] Last Admin: 04/03/17 10:55 Dose: Not Given Hydralazine HCl (Apresoline) 20 mg IVPUSH ONETIME ONE Stop: 04/01/17 16:53 Last Admin: 04/01/17 16:58 Dose: 20 mg Hydromorphone HCl (Dilaudid) 1 mg IVPUSH ONETIME ONE Stop: 04/01/17 16:54 Last Admin: 07/12/17 16:58 Dose: 1 mg Hydromorphone HCl (Dilaudid) 1 mg IVPUSH ONETIME ONE Stop: 04/01/17 17:46 Last Admin: 04/01/17 17:53 Dose: 1 mg Piperacillin Sod/Tazobactam (Sod 3.375 gm/ Sodium Chloride) 100 mls @ 200 mls/ hr IV ONETIME ONE Stop: 04/01/17 18:15 Last Admin: 04/01/17 19:41 Dose: 200 mls/hr Piperacillin Sod/Tazobactam (Sod 3.375 gm/ Sodium Chloride) 100 mls @ 200 mls/ hr IV Q8HR [facility] Last Admin: 04/04/17 06:10 Dose: 200 mls/hr Potassium Chloride/Sodium Chloride (Normal Saline With 20 Meq Kcl) 1,000 mls @ 75 mls/hr IV ASDIRECTED [facility] Last Admin: 04/01/17 19:38 Dose: 75 mls/hr Iopamidol (Isovue-300 (61%)) 50 ml IVPUSH ONETIME ONE Stop: 04/03/17 09:26 Last Admin: 04/03/17 11:33 Dose: 50 ml Ketorolac Tromethamine (Toradol) 30 mg IVPUSH Q6H PRN PRN Reason: sever pain Stop: 04/04/17 10:27 Last Admin: 04/03/17 17:36 Dose: 30 mg Magnesium Hydroxide (Milk Of Magnesia) 30 ml PO Q12H PRN PRN Reason: Constipation Ondansetron HCl (Zofran) 4 mg IV ONETIME ONE Stop: 04/01/17 16:54 Last Admin: 04/01/17 16:58 Dose: 4 mg Potassium Chloride (Klor-Con 10) 20 meq PO TIDMEALS [facility] Last Admin: 04/01/17 20:01 Dose: 20 meq Vancomycin HCl (Vancomycin) 1,650 mg IV ONETIME ONE Stop: 04/01/17 16:56 Last Admin: 04/01/17 17:12 Dose: 1,650 mg - Exam General: alert, oriented, cooperative, no acute distress. No: mild distress, moderate distress, severe distress, sedated, lethargic, obtunded HEENT: Pupils equal, Pupils reactive, EOMI, Mucous membr. moist/pink, Other ( Her chin and submandibular swelling, induration, and tenderness markedly improved from yesterday) Neck: supple, trachea midline, no JVD Lungs: Clear to auscultation, Normal respiratory effort Cardiovascular: Regular Rate, Regular Rhythm Abdomen: bowel sounds present, soft, no tenderness, no distension (Female) Exam: Deferred Extremities: no edema, normal pulses, no tenderness/swelling, no clubbing, no cyanosis, no calf tenderness Neurological: no new focal deficit Psy/Mental Status: alert, normal affect, normal mood, depressed (She looked emotional and slightly depressed). No: suicidal ideation, homicidal ideation, hallucinations - Problem List & Annotations (1) Hypokalemia SNOMED Code(s): 35207943 Code(s): E87.6 - HYPOKALEMIA Status: Acute Current Visit: Yes (2) Accelerated hypertension SNOMED Code(s): 17152718 Code(s): I10 - ESSENTIAL (PRIMARY) HYPERTENSION Status: Acute Current Visit: Yes (3) Facial cellulitis SNOMED Code(s): 983688806 Code(s): L03.211 - CELLULITIS OF FACE Status: Acute Current Visit: Yes (4) Depression with anxiety SNOMED Code(s): 855732926 Code(s): F41.8 - OTHER SPECIFIED ANXIETY DISORDERS Status: Acute Current Visit: Yes - Problem List Review Problem List Initiated/Reviewed/Updated: Yes - My Orders Last 24 Hours: My Active Orders 04/04/17 15:06 Ibuprofen [Motrin] 600 mg PO Q8H PRN Magnesium Hydroxide [Milk of Magnesia] 30 ml PO Q6H PRN - Plan Plan:: Facial cellulitis Chin's wound culture showed MRSA -WBC on admission were 19.7. WBC back to normal -CRP is trending downward but still elevated -Prone culture came back positive for MRSA on 04/04/17 so Zosyn was stopped and vancomycin was continued -Conntinue with vancomycin -Awaiting blood cultures. Negative to date, 3 day -Continue pain management with ibuprofen and Tylenol -CT of the soft tissue of the neck with contrast was done on 04/03/17 and showed fluid collection of 9 mm in size. At that time I spoke to Dr. Huerta, ENT specialist in at [facility] in [place] and discussed the case with her. She recommended to continue on IV antibiotic for 1 more day and reevaluate and if patient is improving then she can follow up as an outpatient but if not she can be transferred to [place] for possible I&D. Patient wanted to wait here and continue with IV antibiotic. Next day she felt better so we decided to continue on his IV vancomycin for 1 more day and reevaluate. Today of though her facial symptoms continue to improve she developed temp of 100.9 Fahrenheit was chills and sweats. Therefore I spoke with Dr. Huerta from ENT again and due to patient improvement in her facial cellulitis and the size of the abscess she recommended continue his IV antibiotics and the fear I&D at this time unless patient temperature does not resolve. -So I still gives the patient the options to be transferred to [place] today but patient declined and she wants to continue with IV antibiotics for 1 more day and if she is free of fever for 24 hours she can be discharged on oral medications and follow up with ENT clinic in the next few days Depression and anxiety I'll start patient on Celexa 10 mg daily and Klonopin 0.5 mg twice a day when necessary Essential benign Hypertension -Is still slightly elevated despite increasing Norvasc from 5-10 mg daily few days ago -I will add hydrochlorothiazide 12.5 mg daily Continue clonidine and hydralazine as needed for systolic blood pressure greater than 160 Monitor blood pressure Facial pain from cellulitis Continue with Percocet and IV morphine as needed for pain Hypokalemia Resolved Replaced orally Continue Lovenox for DVT prophylaxis
[2017-04-05] MEDS: Citalopram 20 MG Tab PO SCH (13:17)
[2017-04-05] MEDS: Acetaminophen 500 MG Tab PO PRN (20:42)
[2017-04-05] MEDS ORDERED: Hydrochlorothiazide 25 MG Tab PO SCH (21:00)
[2017-04-06 07:27] VITALS: BP 121/73
[2017-04-06] MEDS: atorvaSTATin 10 MG Tab PO SCH (08:28)
[2017-04-06] MEDS: Enoxaparin 40 MG/0.4 ML Syringe SUBCUT SCH (08:28)
[2017-04-06] MEDS: Cyclobenzaprine 10 MG Tab PO SCH (08:28)
[2017-04-06] MEDS: Citalopram 20 MG Tab PO SCH (08:28)
[2017-04-06] MEDS: amLODIPine 5 MG Tab PO SCH (08:28)
--- NOTE | 2017-04-06 08:31 | PCM.DCSUM1 ---
Discharge Summary - Hospital Course Free Text/Narrative:: 51-year-old female with past medical history significant for hypertension, appendectomy, depression, anxiety, impaired glucose tolerance, nephrolithiasis, remote pyelonephritis presented to clinic in [place] for having chin pain, swelling, and redness inattention to uncontrolled hypertension. She was transferred from clinic to emergency room where she was diagnosed with acute cellulitis of the chin and uncontrolled hypertension and admitted to the hospital for further management. Her symptoms started the night before admission and symptoms were getting worse rapidly. The pain was rated at 8/10 on pain scale. She had nausea but no vomiting. At that time she denied fever or chills but during hospitalization she had few episodes of chills. On exam she had chin swelling, redness, tenderness, induration and submandibular swelling in addition to mild left lower face swelling. She denies any other symptoms on admission and during hospitalization she developed some neck pain, headache, and constipation which responded well on NSAIDs and bowel regimen. She denied chest pain, shortness breath, cough, any other symptoms or concerns. Patient was started on Zosyn and vancomycin since admission and Zosyn was stopped 2 days ago after wound culture from the chin came back positive for MRSA. On admission her WBC were 19.7. Humulin 13.6. Platelet 482. Sodium 137. Potassium 3.1. Bicarbonate 24. BUNs 8. Creatinine 0.6. Lactic acid 1.5. AST 19. ALTs 19. CRP 3.5. However CRP increased to 13.9 but started trending down afterwards. During hospitalization here improvement was slow so CT scan was done and showed cellulitis in admission to 9 mm of fluid collection. I counseled with ENT in [place] who recommended continuing was IV antibiotics and do intervention already if patient is not getting better or if getting worse. Otherwise follow up with ENT as an outpatient after being discharged. Her blood cultures continued to be negative. Last time patient had elevated temp was yesterday morning and her temperature was 100.9 Fahrenheit. Since then patient has been feeling good. Her facial pain resolved. Her headache, neck pain, constipation resolved. Her facial swelling markedly improved. Her blood pressure improved after increasing Norvasc from 5 mg to 10 mg daily. Yesterday hydrochlorothiazide 12.5 mg nightly was added. Patient had some social issues yesterday so she started having some anxiety and per her request I restarted her on Celexa and Klonopin. She was advised to see her primary care provider within one week for follow up on anxiety/depression and her cellulitis. Also she was advised to see ENT within 2-3 days for her chin cellulitis and abscess. She was discharged home on Bactrim DS for 10 days for her cellulitis/abscess. Her MRSA is sensitive to Bactrim, tetracycline, Levaquin, ciprofloxacin. Plan of care during hospitalization: Facial cellulitis Chin's wound culture showed MRSA -WBC on admission were 19.7. WBC back to normal -CRP is trending downward but still elevated -wound culture came back positive for MRSA on 04/04/17 so Zosyn was stopped and vancomycin was continued -Blood cultures. Negative to date, 4 day -CT of the soft tissue of the neck with contrast was done on 04/03/17 and showed fluid collection of 9 mm in size. At that time I spoke to Dr. Huerta, ENT specialist in at [facility] in [place] and discussed the case with her. She recommended to continue on IV antibiotic for 1 more day and reevaluate and if patient is improving then she can follow up as an outpatient but if not she can be transferred to [place] for possible I&D. Patient wanted to wait here and continue with IV antibiotic. Next day she felt better so we decided to continue on his IV vancomycin for 1 more day and reevaluate. Today of though her facial symptoms continue to improve she developed temp of 100.9 Fahrenheit was chills and sweats. Therefore I spoke with Dr. Huerta from ENT again and due to patient improvement in her facial cellulitis and the size of the abscess she recommended continue his IV antibiotics and the fear I&D at this time unless patient temperature does not resolve. So yesterday I still gave the patient the options to be transferred to [place] but patient declined and she wanted to continue with IV antibiotics for 1 day and if she is free of fever for 24 hours she can be discharged on oral medications and follow up with ENT clinic in the next few days. So she felt better today and she wants to be discharged home. Depression and anxiety On 04/05/17 patient was started on Celexa 10 mg daily and Klonopin 0.5 mg twice a day when necessary Essential benign Hypertension Norvasc was increased from 5-10 mg daily few days ago Hydrochlorothiazide 12.5 mg nightly was added on 04/05/17 Facial pain from cellulitis She was requiring IV morphine, Percocet and the beginning later Toradol and ibuprofen helped. She'll be sent home on Tylenol as pain markedly improved Hypokalemia Resolved Replaced orally She was on Lovenox for DVT prophylaxis - Discharge Data Discharge Date: 04/06/17 Discharge Disposition: Home, Self-Care 01 Condition: Good - Discharge Diagnosis/Problem(s) (1) Hypokalemia SNOMED Code(s): 79831982 ICD Code: E87.6 - HYPOKALEMIA Status: Resolved Current Visit: Yes (2) Accelerated hypertension SNOMED Code(s): 26761698 ICD Code: I10 - ESSENTIAL (PRIMARY) HYPERTENSION Status: Resolved Current Visit: Yes (3) Facial cellulitis SNOMED Code(s): 160445717 ICD Code: L03.211 - CELLULITIS OF FACE Status: Acute Current Visit: Yes (4) Depression with anxiety SNOMED Code(s): 456729219 ICD Code: F41.8 - OTHER SPECIFIED ANXIETY DISORDERS Status: Chronic Current Visit: Yes (5) Constipation SNOMED Code(s): 07188369 ICD Code: K59.00 - CONSTIPATION, UNSPECIFIED Status: Resolved Current Visit: Yes (6) Headache SNOMED Code(s): 31793504 ICD Code: R51 - HEADACHE Status: Resolved Current Visit: Yes - Patient Instructions Diet: Heart Healthy Diet Activity: As Tolerated Driving: May Drive Today Showering/Bathing: May Shower Notify Provider of: Fever, Increased Pain, Swelling and Redness, Drainage, Nausea and/or Vomiting - Discharge Plan Prescriptions/Med Rec: Citalopram [Celexa] 10 mg PO DAILY 30 Days ClonazePAM [KlonoPIN] 0.5 mg PO BEDTIME PRN #20 tablet PRN Reason: Anxiety ClonazePAM [KlonoPIN] 0.5 mg PO BEDTIME PRN #20 tablet PRN Reason: Anxiety Hydrochlorothiazide 12.5 mg PO BEDTIME 30 Days Sulfamethoxazole/Trimethoprim [Bactrim Ds Tablet] 1 each PO BID 10 Days amLODIPine [Norvasc] 10 mg PO DAILY 30 Days Home Medications: Home Meds atorvaSTATin [Lipitor] 1 tab PO DAILY 03/08/15 [History] Acetaminophen [Tylenol Extra Strength] 1,000 mg PO Q6H PRN 03/10/15 [History] Albuterol [Proventil HFA] 1 puff INH QID PRN 03/10/15 [History] Cyclobenzaprine [Flexeril] 10 mg PO DAILY 04/01/17 [History] Citalopram [Celexa] 10 mg PO DAILY 30 Days 04/06/17 [Rx] ClonazePAM [KlonoPIN] 0.5 mg PO BEDTIME PRN #20 tablet 04/06/17 [Rx] ClonazePAM [KlonoPIN] 0.5 mg PO BEDTIME PRN #20 tablet 04/06/17 [Rx] Hydrochlorothiazide 12.5 mg PO BEDTIME 30 Days 04/06/17 [Rx] Sulfamethoxazole/Trimethoprim [Bactrim Ds Tablet] 1 each PO BID 10 Days [Rx] amLODIPine [Norvasc] 10 mg PO DAILY 30 Days 04/06/17 [Rx] Patient Handouts: Contact Precautions, [id number], MRSA Infection, Adult - Discharge Summary/Plan Comment DC Time >30 min.: Yes (35 minutes were spent discharging this patient) - General Info Date of Service: 04/06/17 - Review of Systems General: Reports: No Symptoms HEENT: Denies: dysphasia, ear pain, eye pain, post nasal drip, sinus congestion , sore throat, visual changes Pulmonary: Reports: no symptoms Cardiovascular: Reports: No Symptoms Gastrointestinal: Reports: No symptoms Genitourinary: Reports: no symptoms Musculoskeletal: Reports: no symptoms Skin: Reports: no symptoms Neurological: Reports: No Symptoms Psychiatric: Reports: no symptoms - Patient Data Vitals - Most Recent: Last Vital Signs Temp 36.6 C 04/06/17 07:26 Pulse 88 04/06/17 07:26 Resp 20 04/06/17 07:26 BP 121/73 04/06/17 07:26 Pulse Ox 98 04/06/17 07:26 Weight - Most Recent: 108.771 kg I&O - Last 24 hours: Intake & Output 04/05/17 04/06/17 04/06/17 22:59 06:59 14:59 Intake Total 862 756 Output Total 3400 Balance 862 -2234 Lab Results - Last 24 hrs: Laboratory Results - last 24 hr 04/05/17 Range/Units 16:47 Vancomycin Trough 12.1 (10-15) ug/ml Med Orders - Current: Current Medications Acetaminophen (Tylenol Extra Strength) 1,000 mg PO Q6H PRN PRN Reason: Pain Last Admin: 04/05/17 20:42 Dose: 1,000 mg Albuterol (Proventil Neb Soln) 2.5 mg NEB Q2H PRN PRN Reason: shortness of breath/wheezing Albuterol (Proventil Hfa) 0 gm INH QID PRN PRN Reason: Shortness of Breath Amlodipine Besylate (Norvasc) 10 mg PO DAILY [facility] Last Admin: 04/05/17 08:23 Dose: 10 mg Atorvastatin Calcium (Lipitor) 10 mg PO DAILY [facility] Last Admin: 04/05/17 08:23 Dose: 10 mg Citalopram Hydrobromide (Celexa) 10 mg PO DAILY [facility] Last Admin: 04/05/17 13:17 Dose: 10 mg Clonazepam (Klonopin) 0.5 mg PO BEDTIME PRN PRN Reason: Anxiety Last Admin: 04/05/17 23:11 Dose: 0.5 mg Clonidine HCl (Catapres) 0.1 mg PO Q4HR PRN PRN Reason: Hypertension Last Admin: 04/01/17 20:03 Dose: 0.1 mg Cyclobenzaprine HCl (Flexeril) 10 mg PO DAILY [facility] Last Admin: 04/05/17 08:23 Dose: 10 mg Docusate Sodium (Colace) 100 mg PO BID PRN PRN Reason: Constipation Enoxaparin Sodium (Lovenox) 40 mg SUBCUT DAILY [facility] Last Admin: 04/05/17 08:24 Dose: 40 mg Hydralazine HCl (Apresoline) 10 mg IVPUSH Q6H PRN PRN Reason: Hypertension Hydrochlorothiazide (Hydrochlorothiazide) 12.5 mg PO BEDTIME ON [facility] Last Admin: 04/05/17 20:40 Dose: 12.5 mg Vancomycin HCl 1.25 gm/ Sodium (Chloride) 250 mls @ 166.667 mls/hr IV Q12H [facility] Last Admin: 04/06/17 04:52 Dose: 166.667 mls/hr Ibuprofen (Motrin) 600 mg PO Q8H PRN PRN Reason: Pain, headache Last Admin: 04/05/17 17:55 Dose: 600 mg Magnesium Hydroxide (Milk Of Magnesia) 30 ml PO Q6H PRN PRN Reason: For constipation Morphine Sulfate (Morphine) 2 mg IVPUSH Q2H PRN PRN Reason: Pain (severe 7-10) Last Admin: 04/02/17 05:23 Dose: 2 mg Ondansetron HCl (Zofran Odt) 4 mg PO Q4H PRN PRN Reason: nausea, able to take PO Oxycodone/Acetaminophen (Percocet 325-5 Mg) 1 tab PO Q4H PRN PRN Reason: Pain (moderate 4-6) Last Admin: 04/03/17 03:18 Dose: 1 tab Polyethylene Glycol (Miralax) 17 gm PO DAILY PRN PRN Reason: Constipation Sodium Chloride (Saline Flush) 10 ml FLUSH ASDIRECTED PRN PRN Reason: Keep Vein Open Last Admin: 04/04/17 17:01 Dose: 10 ml Vancomycin HCl (Pharmacy To Dose - Vancomycin) 1 dose .XX ASDIRECTED [facility] Zolpidem Tartrate (Ambien) 5 mg PO BEDTIME PRN PRN Reason: Sleep Last Admin: 04/01/17 21:46 Dose: 5 mg Discontinued Medications Amlodipine Besylate (Norvasc) 5 mg PO DAILY [facility] Last Admin: 04/03/17 10:55 Dose: Not Given Hydralazine HCl (Apresoline) 20 mg IVPUSH ONETIME ONE Stop: 04/01/17 16:53 Last Admin: 04/01/17 16:58 Dose: 20 mg Hydromorphone HCl (Dilaudid) 1 mg IVPUSH ONETIME ONE Stop: 04/01/17 16:54 Last Admin: 04/01/17 16:58 Dose: 1 mg Hydromorphone HCl (Dilaudid) 1 mg IVPUSH ONETIME ONE Stop: 04/01/17 17:46 Last Admin: 04/01/17 17:53 Dose: 1 mg Piperacillin Sod/Tazobactam (Sod 3.375 gm/ Sodium Chloride) 100 mls @ 200 mls/ hr IV ONETIME ONE Stop: 04/01/17 18:15 Last Admin: 04/01/17 19:41 Dose: 200 mls/hr Piperacillin Sod/Tazobactam (Sod 3.375 gm/ Sodium Chloride) 100 mls @ 200 mls/ hr IV Q8HR [facility] Last Admin: 04/04/17 06:10 Dose: 200 mls/hr Potassium Chloride/Sodium Chloride (Normal Saline With 20 Meq Kcl) 1,000 mls @ 75 mls/hr IV ASDIRECTED ON [facility] OF [facility] Last Admin: 04/01/17 19:38 Dose: 75 mls/hr Iopamidol (Isovue-300 (61%)) 50 ml IVPUSH ONETIME ONE Stop: 04/03/17 09:26 Last Admin: 04/03/17 11:33 Dose: 50 ml Ketorolac Tromethamine (Toradol) 30 mg IVPUSH Q6H PRN PRN Reason: sever pain Stop: 04/04/17 10:27 Last Admin: 04/03/17 17:36 Dose: 30 mg Magnesium Hydroxide (Milk Of Magnesia) 30 ml PO Q12H PRN PRN Reason: Constipation Ondansetron HCl (Zofran) 4 mg IV ONETIME ONE Stop: 04/01/17 16:54 Last Admin: 04/01/17 16:58 Dose: 4 mg Potassium Chloride (Klor-Con 10) 20 meq PO TIDMEALS ON [facility] Last Admin: 04/01/17 20:01 Dose: 20 meq Vancomycin HCl (Vancomycin) 1,650 mg IV ONETIME ONE Stop: 04/01/17 16:56 Last Admin: 04/01/17 17:12 Dose: 1,650 mg - Exam General: Reports: alert, oriented, cooperative, no acute distress. Denies: mild distress, moderate distress, severe distress, sedated, lethargic, obtunded HEENT: Reports: Pupils equal, Pupils reactive, EOMI, Mucous membr. moist/pink, Other (Facial redness resolved. She had mild chin induration without redness, tenderness, drainage. She had slight submandibular swelling with midline tender lump which possibly is enlarged lymph node) Neck: Reports: supple, trachea midline, no JVD Lungs: Reports: Clear to auscultation, Normal respiratory effort Cardiovascular: Reports: Regular Rate, Regular Rhythm Abdomen: Reports: bowel sounds present, soft, no tenderness, no distension. Denies: rigidity, rebound, guarding, tenderness, distension (Female) Exam: Deferred Rectal (Female) Exam: Deferred Back Exam: Reports: Normal Inspection, Full Range of Motion. Denies: CVA Tenderness (L), CVA Tenderness (R) Extremities: Reports: no edema, normal pulses, no tenderness/swelling, no clubbing, no cyanosis, no calf tenderness Skin: Reports: warm, dry, intact Neurological: Reports: no new focal deficit Psy/Mental Status: Reports: alert, normal affect, normal mood *Q Meaningful Use (DIS) - VTE *Q VTE Criteria *Q: - Stroke *Q Stroke Criteria *Q: - AMI *Q AMI Criteria *Q:
== END 2017-04-06 10:28 | disposition home or self-care (01) | DRG 603 ==
LOC: DL.ED 16:14 → DL.MS 18:05 → UNDOADMIN 18:05 → EEVIPCON 18:38 → DL.MS 18:38
PROVIDERS: ADMIT Internal Medicine; ATTEND Internal Medicine
DX: L03.211 Cellulitis of face (principal); I10 Essential (primary) hypertension; A49.02 Methicillin resistant Staphylococcus aureus infection, unspecified site; E87.6 Hypokalemia; E78.5 Hyperlipidemia, unspecified; F17.200 Nicotine dependence, unspecified, uncomplicated; Z72.89 Other problems related to lifestyle; Z88.8 Allergy status to other drugs, medicaments and biological substances; F41.8 Other specified anxiety disorders; M54.2 Cervicalgia; R51 Headache; K59.00 Constipation, unspecified
CPT/HCPCS: 36415; 70491; 80048; 80053; 80202; 83605; 85025; 85027; 86140; 87040; 87070; 87077; 87186; 96365; 96375; 96376; 99285; A9270-GY; J0360; J1170; J1650; J1885; J2270; J2405; J2543; J3370; J3480; J7050; Q9967

== ENCOUNTER 2017-07-05 12:28 | Inpatient (IN) | payer MEDICAID, OTHER ==
[2017-07-05] MEDS ORDERED: Sodium Chloride 0.9% 1,000 ML IV ONE (12:57)
[2017-07-05] MEDS ORDERED: Ketorolac 30 MG/ML SDV IVPUSH ONE (13:02)
--- NOTE | 2017-07-05 13:03 | EDM.PDOC ---
ED HPI GENERAL MEDICAL PROBLEM - General Chief Complaint: Genitourinary Problem Stated Complaint: NO PHONE KIDNEY PAIN Time Seen by Provider: 07/05/17 12:56 Source of Information: Reports: Patient History Limitations: Reports: No Limitations - History of Present Illness INITIAL COMMENTS - FREE TEXT/NARRATIVE: 52 yo white female w/ PMHx. Left side kidney stone c/o left flank and low mid abdomen pain @ 8AM Onset: Today Onset Date: 07/05/17 Onset Time: 08:00 Duration: Hour(s): Location: Reports: Back Quality: Reports: Ache, Same as Previous Episode Severity: Moderate Improves with: Reports: None Worsens with: Reports: None Associated Symptoms: Reports: No Other Symptoms Left Flank Pain Score (Numeric/FACES): 8 - Related Data Allergies Allergy/AdvReac Type Severity Reaction Status Date / Time bupropion HCl Allergy Anxiety Verified 07/05/17 12:41 [From Wellbutrin] buspirone HCl [From BuSpar] Allergy Anxiety Verified 07/05/17 12:41 venlafaxine HCl Allergy Anxiety Verified 07/05/17 12:41 [From Effexor] Home Meds: Home Meds atorvaSTATin [Lipitor] 1 tab PO DAILY 03/08/15 [History] Acetaminophen [Tylenol Extra Strength] 1,000 mg PO Q6H PRN 03/10/15 [History] Albuterol [Proventil HFA] 1 puff INH QID PRN 03/10/15 [History] Cyclobenzaprine [Flexeril] 10 mg PO DAILY 04/01/17 [History] Citalopram [Celexa] 10 mg PO DAILY 30 Days tablet 04/06/17 [Rx] Hydrochlorothiazide 12.5 mg PO BEDTIME 30 Days tablet 04/06/17 [Rx] amLODIPine [Norvasc] 10 mg PO DAILY 30 Days tablet 04/06/17 [Rx] Past Medical History HEENT History: Reports: None Cardiovascular History: Reports: High Cholesterol, Hypertension Respiratory History: Reports: Asthma Gastrointestinal History: Reports: None Other Genitourinary History: ureteral stent PILATES COORDINATOR History: Reports: None Musculoskeletal History: Reports: Back Pain, Chronic, Fracture Other Musculoskeletal History: fibromyalgia Neurological History: Reports: None Psychiatric History: Reports: Anxiety Endocrine/Metabolic History: Reports: None Hematologic History: Reports: None Immunologic History: Reports: None Oncologic (Cancer) History: Reports: None Dermatologic History: Reports: None - Past Surgical History Head Surgeries/Procedures: Reports: None GI Surgical History: Reports: Cholecystectomy Female Surgical History: Reports: Section Neurological Surgical History: Reports: Discectomy Musculoskeletal Surgical History: Reports: Carpal Tunnel Social & Family History - Family History Family Medical History: Noncontributory - Tobacco Use Smoking Status *Q: Current Every Day Smoker Years of Tobacco use: 32 Packs/Tins Daily: 1 Used Tobacco, but Quit: No Second Hand Smoke Exposure: No - Caffeine Use Caffeine Use: Reports: Coffee, Soda - Alcohol Use Days Per Week of Alcohol Use: 0 Number of Drinks Per Day: 8 Total Drinks Per Week: 0 - Recreational Drug Use Recreational Drug Use: No Drug Use in Last 12 Months: No - Living Situation & Occupation Living situation: Reports: , with Family Occupation: Employed ED ROS GENERAL - Review of Systems Review Of Systems: See Below Constitutional: Reports: No Symptoms HEENT: Reports: No Symptoms Respiratory: Reports: No Symptoms Cardiovascular: Reports: No Symptoms Endocrine: Reports: No Symptoms GI/Abdominal: Reports: Abdominal Pain (low mid) : Reports: Flank Pain (left) Musculoskeletal: Reports: No Symptoms Skin: Reports: No Symptoms Neurological: Reports: No Symptoms Psychiatric: Reports: No Symptoms Hematologic/Lymphatic: Reports: No Symptoms Immunologic: Reports: No Symptoms ED EXAM, RENAL/ - Physical Exam Exam: See Below Exam Limited By: No Limitations General Appearance: Alert, No Apparent Distress, Obese Eye Exam: Bilateral Eye: EOMI, PERRL Ears: Normal External Exam Nose: Normal Inspection Throat/Mouth: Normal Inspection Head: Atraumatic Neck: Normal Inspection Respiratory/Chest: No Respiratory Distress, Lungs Clear Cardiovascular: Normal Peripheral Pulses, Regular Rate, Rhythm GI/Abdominal: Normal Bowel Sounds, Tender (suprapubic area) Back Exam: Normal Inspection, CVA Tenderness (L) Extremities: Normal Inspection, Normal Range of Motion Neurological: Alert, Oriented, CN II-XII Intact, Normal Cognition Psychiatric: Normal Affect Skin Exam: Warm, Dry, Intact Lymphatic: No Adenopathy Course - Vital Signs Last Recorded V/S: Last Vital Signs Temp 35.8 C 07/05/17 12:33 Pulse 103 H 07/05/17 12:33 Resp 20 07/05/17 12:33 BP 178/84 H 07/05/17 12:33 Pulse Ox 99 07/05/17 12:33 - Orders/Labs/Meds Orders: Active Orders 24 hr Category Date Time Status CULTURE URINE [RM] Stat Lab 07/05/17 14:29 Uncollected Labs: Laboratory Tests 07/05/17 07/05/17 07/05/17 Range/Units 13:00 13:06 13:06 WBC 17.9 H (5.0-10.0) 10^3/uL RBC 4.40 (4.2-5.4) 10^6/uL Hgb 13.2 (12.0-16.0) g/dL Hct 39.8 (37.0-47.0) % MCV 90.5 (80-100) fL MCH 30.0 (27.0-34.0) pg MCHC 33.2 (33.0-35.0) g/dL Plt Count 490 H (150-450) 10^3/uL Neut % (Auto) 75.6 H (42.2-75.2) % Lymph % (Auto) 14.6 L (20.5-50.1) % Coles % (Auto) 7.3 (2-8) % Eos % (Auto) 2.3 (1.0-3.0) % Baso % (Auto) 0.2 (0.0-1.0) % Sodium 136 (135-145) mmol/L Potassium 3.8 (3.6-5.0) mmol/L Chloride 97 L (101-111) mmol/L Carbon Dioxide 28.0 (21.0-31.0) mmol/L Anion Gap 14.8 BUN 14 (7-18) mg/dL Creatinine 0.8 (0.6-1.3) mg/dL Est Cr Clr Drug Dosing 74.86 mL/min Estimated GFR (MDRD) > 60 BUN/Creatinine Ratio 17.50 Glucose 165 H (74-105) mg/dL Calcium 9.8 (8.4-10.2) mg/dl Total Bilirubin 0.5 (0.2-1.0) mg/dL AST 21 (10-42) IU/L ALT 23 (10-60) IU/L Alkaline Phosphatase 104 (42-121) IU/L Total Protein 8.3 H (6.7-8.2) g/dl Albumin 4.0 (3.2-5.5) g/dl Globulin 4.3 Albumin/Globulin Ratio 0.93 Urine Color Light yellow (YELLOW) Urine Appearance Slightly cloudy (CLEAR) Urine pH 5.5 (5.0-9.0) Ur Specific [place] <= 1.005 (1.005-1.030) Urine Protein 30 H (NEGATIVE) Urine Glucose (UA) Negative (NEGATIVE) Urine Ketones Negative (NEGATIVE) Urine Occult Blood Trace-intact H (NEGATIVE) Urine Nitrite Negative (NEGATIVE) Urine Bilirubin Negative (NEGATIVE) Urine Urobilinogen 0.2 (0.2-1.0) mg/dL Ur Leukocyte Esterase Negative (NEGATIVE) Urine RBC 0-5 /HPF Urine WBC Not seen (0-5/HPF) /HPF Ur Epithelial Cells Rare /HPF Urine Bacteria Rare (0-FEW/HPF) /HPF Meds: Medications Discontinued Medications Generic Name Dose Route Start Last Admin Trade Name Freq PRN Reason Stop Dose Admin Hydromorphone HCl 1 mg 07/05/17 13:51 07/05/17 13:56 Dilaudid IVPUSH 07/05/17 13:52 1 mg ONETIME ONE Administration Sodium Chloride 1,000 mls @ 999 mls/hr 07/05/17 12:57 07/05/17 13:16 Normal Saline IV 07/05/17 13:57 999 mls/hr .BOLUS ONE Administration Ketorolac Tromethamine 30 mg 07/05/17 13:02 07/05/17 13:16 Toradol IVPUSH 07/05/17 13:03 30 mg ONETIME ONE Administration Departure - Departure Time of Disposition: 14:30 Disposition: Admitted As Inpatient 67 Condition: Good Clinical Impression: Pyelonephritis - Discharge Information Referrals: Daniel Mckeon MD [Physician] - Forms: ED Department Discharge - My Orders Last 24 Hours: My Active Orders 07/05/17 14:29 CULTURE URINE [RM] Stat - Assessment/Plan Last 24 Hours: My Active Orders 07/05/17 14:29 CULTURE URINE [RM] Stat
[2017-07-05 13:31] LABS: CHLORIDE,CL 97 mmol/L (101-111); SODIUM,NA 136 mmol/L (135-145)
[2017-07-05] MEDS ORDERED: HYDROmorphone 1 MG/ML Syringe IVPUSH ONE (13:51)
[2017-07-05] MEDS ORDERED: cefTRIAXone 1 GM in Sodium Chloride 0.9% 50 ML IV ONE (14:32)
--- NOTE | 2017-07-05 16:00 | PCM.HP ---
H&P History of Present Illness - General Date of Service: 07/05/17 Admit Problem/Dx: Admitted with Left falnk pain, possible left pyelonephritis Source of Information: Patient, Old Records History Limitations: Reports: No Limitations - History of Present Illness Initial Comments - Free Text/Narative: Patient is a 52 y.o female with medical history of HTN , Hyperlipidemia, Depression , Nephrolithiasis and anxiety disorder woks at [facility], presented to ED with complain flank pain for the last 3 days, getting progressively worse and also had vomited once today before coming to ED, she denied . No hematuria, fever, chills, Nausea or dysuria. CT abdomen and pelvis done at [facility] ( 07/05/17 showed : Marked Left Hydronephrosis minimally increased from Past CT done on 03/25/16 , fluid extend along the subcapsulatr space along the lateral; aspect of the left lower pole . No perinephric edema, small Rt. ureteral calculus, , No rt. Hydronephrosis, Left parenchymal renal atrophy, The findings are again high grade Left UPJ stenosis/obstruction, co-existing Pyelonephritis can not be excluded I reviewed the Note from Urologist ( Dr. Acosta) at [facility] and at that visit of 02/22/15 she had 1. Cystoscopy. 2. Retrograde pyelogram. 3. Left ureteral stent placement (6-Palauan, 24 cm) and on -revisit at [facility] on 03/22/15 she Cystoscopy and removal of the left ureteral stent and was advised to follow in 3-4 weeks for lasix renoram to rule out a functional left UPJ obstruction. 03/31/16 had lasix scan that showed partial obstruction to left Kidney, Differential renal function 26% left and rt kidney 74% and she was refered to [facility] for Robotic Left sided Pyeloplasty ] but she says [facility] denied to do and advised her to get done at [facility], but at [facility] she was told she does not need any procedure- as per pt I did not seen the ctart or any documentation] Onset of Symptoms: Reports: Gradual Duration of Symptoms: Reports: Day(s): (3), Recurring Quality: Reports: Sharp Left Flank Pain Score (Numeric/FACES): 8 - Related Data Allergies/Adverse Reactions: Allergies Allergy/AdvReac Type Severity Reaction Status Date / Time bupropion HCl Allergy Anxiety Verified 07/05/17 12:41 [From Wellbutrin] buspirone HCl [From BuSpar] Allergy Anxiety Verified 07/05/17 12:41 venlafaxine HCl Allergy Anxiety Verified 07/05/17 12:41 [From Effexor] Home Medications: Home Meds atorvaSTATin [Lipitor] 1 tab PO DAILY 03/08/15 [History] Acetaminophen [Tylenol Extra Strength] 1,000 mg PO Q6H PRN 03/10/15 [History] Albuterol [Proventil HFA] 1 puff INH QID PRN 03/10/15 [History] Cyclobenzaprine [Flexeril] 10 mg PO DAILY 04/01/17 [History] Citalopram [Celexa] 10 mg PO DAILY 30 Days tablet 04/06/17 [Rx] Hydrochlorothiazide 25 mg PO BEDTIME 07/05/17 [History] Vitamin B Complex 1 each PO DAILY 07/05/17 [History] amLODIPine [Norvasc] 5 mg PO DAILY 07/05/17 [History] Past Medical History HEENT History: Reports: None Cardiovascular History: Reports: High Cholesterol, Hypertension Respiratory History: Reports: Asthma Gastrointestinal History: Reports: None Other Genitourinary History: ureteral stent PAIN COORDINATOR History: Reports: None Musculoskeletal History: Reports: Back Pain, Chronic, Fracture Other Musculoskeletal History: fibromyalgia Neurological History: Reports: None Psychiatric History: Reports: Anxiety Endocrine/Metabolic History: Reports: None Hematologic History: Reports: None Immunologic History: Reports: None Oncologic (Cancer) History: Reports: None Dermatologic History: Reports: None - Past Surgical History Head Surgeries/Procedures: Reports: None GI Surgical History: Reports: Cholecystectomy Female Surgical History: Reports: Section Neurological Surgical History: Reports: Discectomy Musculoskeletal Surgical History: Reports: Carpal Tunnel Social & Family History - Family History Family Medical History: Noncontributory - Tobacco Use Smoking Status *Q: Current Every Day Smoker Years of Tobacco use: 32 Packs/Tins Daily: 1 Used Tobacco, but Quit: No Second Hand Smoke Exposure: No - Caffeine Use Caffeine Use: Reports: Coffee, Soda - Alcohol Use Days Per Week of Alcohol Use: 0 Number of Drinks Per Day: 8 Total Drinks Per Week: 0 - Recreational Drug Use Recreational Drug Use: No Drug Use in Last 12 Months: No - Living Situation & Occupation Living situation: Reports: , with Family Occupation: Employed H&P Review of Systems - Review of Systems: Review Of Systems: See Below General: Denies: Fever, Chills, Weakness, Fatigue, Weight Gain HEENT: Denies: Dysphasia, Post Nasal Drip, Sore Throat, Visual Changes Pulmonary: Denies: Shortness of Breath, Wheezing, Pleuritic Chest Pain, Cough, Sputum, Hemoptysis Cardiovascular: Denies: Chest Pain, Dyspnea on Exertion, Lightheadedness Gastrointestinal: Denies: Abdominal Pain, Difficulty Swallowing, Nausea, Vomiting, Other Genitourinary: Reports: Pain (left flank), Flank Pain (left). Denies: Dysuria, Burning Musculoskeletal: Denies: Neck Pain, Shoulder Pain, Muscle Pain, Muscle Stiffness Skin: Denies: Jaundice, Bruising, Rash Psychiatric: Denies: Anxiety, Agitation Neurological: Denies: Confusion, Numbness, Tremors Exam - Exam Exam: See Below - Vital Signs Vital Signs: Last Vital Signs Temp 35.8 C 07/05/17 12:33 Pulse 103 H 07/05/17 12:33 Resp 20 07/05/17 12:33 BP 178/84 H 07/05/17 12:33 Pulse Ox 99 07/05/17 12:33 Weight: 108.409 kg - Exam Quality Assessment: DVT Prophylaxis. No: Supplemental Oxygen, Central Line/PICC , Urinary Catheter General: Alert, Oriented, Cooperative HEENT: Conjunctiva Clear, Hearing Intact, Mucosa Moist & [place], Pupils Reactive Neck: Supple, Full Range of Motion. No: Lymphadenopathy, Thyromegaly Lungs: Clear to Auscultation, Normal Respiratory Effort. No: Crackles, Wheezing Cardiovascular: Regular Rate, Regular Rhythm GI/Abdominal Exam: Normal Bowel Sounds, Soft, Non-Tender, No Distention (Female) Exam: Deferred Rectal (Female) Exam: Deferred Extremities: Normal Inspection, Normal Range of Motion Skin: Warm, Dry, Intact Neurological: Cranial Nerves Intact, Reflexes Equal Bilateral Neuro Extensive - Mental Status: Alert, Oriented x3, Normal Mood/Affect, Normal Cognition Neuro Extensive - Motor, Sensory, Reflexes: CN II-XII Intact, Normal Gait, Normal Reflexes Psychiatric: Alert, Normal Affect, Normal Mood - Patient Data Result Diagrams: 07/05/17 13:06 10/15/17 13:06 *Q Meaningful Use (ADM) - VTE *Q VTE Criteria *Q: - Stroke *Q Stroke Criteria *Q: - AMI *Q AMI Criteria *Q: - Problem List (1) Pyelonephritis SNOMED Code(s): 98383759 ICD Code: N12 - TUBULO-INTERSTITIAL NEPHRITIS, NOT SPCF ACUTE OR CHRONIC Status: Acute Current Visit: Yes Problem List Initiated/Reviewed/Updated: Yes Assessment/Plan Comment:: This is a 52 y/O Moderately obese Female came to ED with 3 days course of left flank Pain, progressively getting worse 1. Left Pyelonephritis: This is likely from her Left chronic UPJ obstruction and also left Hydronephrosis -I will treat her like severe Pyelonephritis with chronic UPJ obstruction and Hydronephrosis -Will start Zosyn 3.375 gm q6 hrs -Will follow urine culture -Will need further evaluation by Urology and likely future surgery to fix the chronic left UPJ obstruction 2. Left Hydronephrosis: This is present and seen in CT scan of 03/2015 and likely from chronic Left UPJ obstruction -She had NM renogram with lasix scan on 03/31/16, that showed Relative function on the LEFT is 26.3% and the RIGHT 73.7%.and suspected some obstruction -She will need again evalution and follow up with Urology, likely there will further diminished function of the left kidney because of prolonged Left hydronephrosis -Will discuss with Urologist 3. Hypertension: Continue home medication, BP is acceptable continue home medication 4. Depression: continue Hemidication 5. DVT prophylaxis: continue enoxaparin 6. Code Status: Full Code
[2017-07-05] MEDS ORDERED: Albuterol 6.7 GM Inhaler INH PRN (16:46)
[2017-07-05] MEDS: Acetaminophen 500 MG Tab PO PRN (18:41)
[2017-07-05] MEDS: Piperacillin/Tazobactam 3.375 GM in Sodium Chloride 0.9% 100 ML IV SCH ×2 (18:43→23:46)
[2017-07-05] MEDS: Hydrochlorothiazide 25 MG Tab PO SCH (21:04)
[2017-07-06] MEDS: Sodium Chloride 0.9% 10 ML Syringe FLUSH PRN ×5 (04:44→23:17)
[2017-07-06] MEDS: Piperacillin/Tazobactam 3.375 GM in Sodium Chloride 0.9% 100 ML IV SCH ×4 (04:44→22:45)
[2017-07-06] MEDS: Acetaminophen 500 MG Tab PO PRN ×2 (04:51→17:25)
[2017-07-06] MEDS: Vitamin B Complex Cap PO SCH (08:26)
[2017-07-06] MEDS: amLODIPine 5 MG Tab PO SCH (08:26)
[2017-07-06] MEDS: atorvaSTATin 10 MG Tab PO SCH (08:26)
[2017-07-06] MEDS: Enoxaparin 40 MG/0.4 ML Syringe SUBCUT SCH (08:27)
[2017-07-06] MEDS: Citalopram 20 MG Tab PO SCH (08:27)
[2017-07-06] MEDS: Cyclobenzaprine 10 MG Tab PO SCH (08:27)
[2017-07-06] MEDS: Nicotine 14 MG/24 Hr Patch TRDERM SCH (08:28)
--- NOTE | 2017-07-06 18:06 | PN ---
DATE: 07/06/2017 SUBJECTIVE: Ms. Salmeron is a 52-year-old lady who was admitted with recurrent left pyelonephritis. She presented with flank pain for 3 days prior to admission, which was progressively worse. She vomited once before coming into the emergency room. Denied any fever, chills, hematuria, or dysuria. CT scan of the abdomen performed at the time of admission showed marked left hydronephrosis. Her history is significant for this left hydronephrosis, which apparently had been worked up extensively. She had previous left ureteral stent placed, and at a revisit in March 2015, the stent was removed. There had been some discussion that she will be referred to [facility] for a pyeloplasty. The [facility] felt that she should seek care here in [place] because they felt that the care was available. It appears at that point she was lost to follow up. The admitting physician over the weekend is a paginator and he now would like to see her following discharge and will arrange for her to be seen by Urology in [place], so that some type of definitive procedure can be done to save the declining function of the left kidney. Review of her clinical data shows her vital signs are stable. She is afebrile. She is taking in oral fluids. She is voiding. She is tolerating 100% of her meals. A repeat lab work this morning showed a marked decline in her white count and it was 18,000 on admission and today is down to 8500; hemoglobin and hematocrit were 12 and 37.5; platelets were normal. At time of admission yesterday, BUN and creatinine were 14 and 0.8 with a GFR of more than 60. LFTs were unremarkable. Urinalysis was benign. Two sets of blood culture showed no growth after 1 day. PHYSICAL EXAMINATION: General: She is seated comfortably in her recliner. She voiced no new concerns or complaints. She is understandably concerned that she wants to pursue further workup and we repeated to her that Dr. Mckeon is very interested in working with her. Vital Signs: On exam today, blood pressure was 146/72, pulse 78, respiratory rate 20, oxygen saturation 95% on room air. She is afebrile. HEENT: Unremarkable. ENT was clear. Chest: Clear, but diminished bilateral breath sounds. She is a smoker and she had a harsh smoker's cough. Heart: Showed regular rate and rhythm. Abdomen: Benign. Back: There was minimal tenderness on percussion on the left back overlying the kidney. Extremities: Calves are soft and nontender. PLAN: We will continue the present management. She currently is on IV Zosyn 3.375 g every 6 hours. We will continue this until the end of the week, and at that time, we will switch her to an oral antibiotic, probably Augmentin. Dr. Mckeon has scheduled an appointment for her on July 21, at 12 p.m. to see him at the [facility] here in [place] and he will arrange for Urology followup. No other changes are made in her care today. [facility] /[id number]
[2017-07-06] MEDS: Hydrochlorothiazide 25 MG Tab PO SCH (20:24)
[2017-07-07] MEDS: Sodium Chloride 0.9% 10 ML Syringe FLUSH PRN ×4 (05:03→17:15)
[2017-07-07] MEDS: Piperacillin/Tazobactam 3.375 GM in Sodium Chloride 0.9% 100 ML IV SCH ×4 (05:05→23:18)
[2017-07-07] MEDS: Vitamin B Complex Cap PO SCH (09:25)
[2017-07-07] MEDS: atorvaSTATin 10 MG Tab PO SCH (09:26)
[2017-07-07] MEDS: amLODIPine 5 MG Tab PO SCH (09:27)
[2017-07-07] MEDS: Cyclobenzaprine 10 MG Tab PO SCH (09:27)
[2017-07-07] MEDS: Citalopram 20 MG Tab PO SCH (09:28)
[2017-07-07] MEDS: Acetaminophen 500 MG Tab PO PRN ×2 (09:30→20:04)
[2017-07-07] MEDS: Enoxaparin 40 MG/0.4 ML Syringe SUBCUT SCH (09:31)
[2017-07-07] MEDS: Nicotine 14 MG/24 Hr Patch TRDERM SCH (09:32)
[2017-07-07] MEDS ORDERED: Albuterol 0.083% 2.5 MG/3 ML Neb Soln NEB PRN (17:21)
--- NOTE | 2017-07-07 19:54 | PN ---
DATE: 07/07/2017 SUBJECTIVE: Patti is a 52-year-old lady who is a current smoker. She was admitted with left flank pain and was found to have recurrent left pyelonephritis as well as significant hydronephrosis of the left kidney. This has been known since 2014 when she had a left ureteral stent placed and there was further discussion of doing a pyeloplasty. Dr. Mckeon was the admitting physician over the weekend and he has arranged to see her in followup on 07/21 and make referral to Nephrology. Today, she is in her room. She is seated in her bed. She voices no concerns or complaints. Today we gave her a flutter valve. She has a smoker's cough and we thought that the flutter valve would help her mobilize some of the secretions. I do not think that she is using it quite right as she has not had any results from that. We will ask therapy to review this again with her. We also added albuterol nebulizer treatment today on a t.i.d. basis as well as p.r.n. albuterol neb treatment. Review of her clinical data shows that she is taking adequate fluids. She is voiding and moving her bowels. Tolerating 100% of her meals. Her vital signs are stable and she is afebrile. Review of her blood pressure does show that her systolics are in the 140s to 150s. She is currently on hydrochlorothiazide 25 mg a day and amlodipine 5 mg daily. We will increase her amlodipine to 10 mg daily and follow up blood pressures. There was no new lab work performed today. PHYSICAL EXAMINATION: General: She is seated comfortably in bed. Vital signs: Blood pressure is 153/88, pulse 77, respiratory rate 18, oxygen saturation 99% on room air, and she is afebrile. She was complaining that she did not get very much back from the flutter valve, but again she does not seem to be using it correctly. We will ask Respiratory Therapy to see her tomorrow and go over this with her. She could benefit from its use. The current plan is to continue her IV antibiotics until Thursday and at that point, switch her to Augmentin for another 10 days. She will follow up with Dr. Mckeon on Thursday, 07/21 at 12 p.m. here in [facility]. Dr. Mckeon will see that she gets to Urology for some definitive treatment of the left kidney. No other changes today. [facility] /[id number] MTDD
[2017-07-07] MEDS: Hydrochlorothiazide 25 MG Tab PO SCH (21:41)
[2017-07-07] MEDS: Albuterol/Ipratropium 3.0-0.5 MG/3 ML Neb Soln NEB SCH (21:41)
[2017-07-08] MEDS: Piperacillin/Tazobactam 3.375 GM in Sodium Chloride 0.9% 100 ML IV SCH ×2 (05:43→10:59)
[2017-07-08] MEDS: Acetaminophen 500 MG Tab PO PRN (06:00)
[2017-07-08] MEDS: Citalopram 20 MG Tab PO SCH (08:44)
[2017-07-08] MEDS: atorvaSTATin 10 MG Tab PO SCH (08:44)
[2017-07-08] MEDS: Vitamin B Complex Cap PO SCH (08:44)
[2017-07-08] MEDS: Cyclobenzaprine 10 MG Tab PO SCH (08:44)
[2017-07-08] MEDS: Albuterol/Ipratropium 3.0-0.5 MG/3 ML Neb Soln NEB SCH (08:45)
[2017-07-08] MEDS: Nicotine 14 MG/24 Hr Patch TRDERM SCH (08:45)
[2017-07-08] MEDS: Enoxaparin 40 MG/0.4 ML Syringe SUBCUT SCH (08:46)
[2017-07-08] MEDS ORDERED: amLODIPine 5 MG Tab PO SCH (09:00)
[2017-07-08] MEDS ORDERED: Acetaminophen 325 MG Tab PO ONE (10:10)
[2017-07-08] MEDS ORDERED: FLU VAC QS 17-18(4YR UP)CEL/PF 60 MCG/0.5 ML Syringe IM ONE (10:29)
[2017-07-08 11:12] VITALS: BP 150/92
--- NOTE | 2017-07-08 12:06 | DISCH ---
FINAL DIAGNOSES: 1. Acute pyelonephritis. 2. Left-sided hydronephrosis. 3. Hypertension. 4. Depression. SUMMARY OF HOSPITAL COURSE: Ms. Patti Salmeron is a 52-year-old female, moderately obese, who presented with 3-day history of left flank pain that has been progressively worsening. The patient was found to have a left pyelonephritis and was started on intravenous antibiotics. She is also known to have chronic left ureteropelvic junction obstruction with associated hydronephrosis. The patient was started on intravenous Zosyn, and her fever subsided. Urine cultures and blood cultures were negative. She will be discharged on oral antibiotics. She was seen by Dr. Mckeon who actually admitted her. Dr. Mckeon wants to see the patient on 21 of July and subsequently arrange for evaluation by urologist because of her hydronephrosis. PHYSICAL EXAMINATION: General: On discharge, the patient is alert and oriented to place, time, and person. Head: Atraumatic and normocephalic. Ear, Nose, and Throat: Unremarkable. Neck: Supple. Chest: Clear to auscultation. Cardiovascular System: Regular rate and rhythm. No S3 or S4. Abdomen: Soft and nontender. Extremities: No pedal edema. No finger clubbing. [facility] /[id number]
== END 2017-07-08 12:36 | disposition home or self-care (01) | DRG 690 ==
LOC: DL.ED 12:28 → UNDOADMIN 14:42 → DL.MS 14:42
PROVIDERS: ADMIT Internal Medicine Nephrology; ATTEND Internal Medicine Nephrology
PROC: 3E0234Z Introduction of Serum, Toxoid and Vaccine into Muscle, Percutaneous Approach (ICD-10-PCS; principal; 2017-07-05)
DX: N13.6 Pyonephrosis (principal); I10 Essential (primary) hypertension; E78.5 Hyperlipidemia, unspecified; F32.9 Major depressive disorder, single episode, unspecified; F41.9 Anxiety disorder, unspecified; J45.909 Unspecified asthma, uncomplicated; Z96.0 Presence of urogenital implants; G89.29 Other chronic pain; M54.9 Dorsalgia, unspecified; M79.7 Fibromyalgia; F17.200 Nicotine dependence, unspecified, uncomplicated; E66.9 Obesity, unspecified; Z79.899 Other long term (current) drug therapy; Z79.51 Long term (current) use of inhaled steroids; Z23 Encounter for immunization
CPT/HCPCS: 36415; 74176; 80053; 81001; 85025; 87040; 87086; 90674; 96361; 96374; 96375; 99284; A9270-GY; J0696; J1170; J1650; J1885; J2543; J7030; J7050

== ENCOUNTER 2018-12-18 11:56 | Emergency (ER) | payer OTHER ==
--- NOTE | 2018-12-18 12:24 | EDM.PDOC ---
ED HPI GENERAL MEDICAL PROBLEM - General Chief Complaint: Upper Extremity Injury/Pain Stated Complaint: SWOLLEN RIGHT HAND [id number] Time Seen by Provider: 12/18/18 12:20 Source of Information: Reports: Patient History Limitations: Reports: No Limitations - History of Present Illness INITIAL COMMENTS - FREE TEXT/NARRATIVE: Patient comes emergency department today with complaints of inability to move her right wrist. She reports since yesterday when she woke up from a nap she has been unable to extend her wrist. She complains of numbness and tingling to her thumb and second finger and third finger of her right hand. She denies any trauma falls or injury to the right upper extremity. The pain goes all the way up the medial aspect of her right arm up to her shoulder. She denies any neck pain or any other injury. - Related Data Allergies Allergy/AdvReac Type Severity Reaction Status Date / Time bupropion HCl Allergy Anxiety Verified 08/05/18 09:49 [From Wellbutrin] buspirone HCl [From BuSpar] Allergy Anxiety Verified 08/05/18 09:49 venlafaxine HCl Allergy Anxiety Verified 08/05/18 09:49 [From Effexor] Home Meds: Home Meds atorvaSTATin [Lipitor] 10 mg PO DAILY 03/08/15 [History] Acetaminophen [Tylenol Extra Strength] 1,000 mg PO Q6H PRN 03/10/15 [History] Albuterol [Proventil HFA] 1 puff INH QID PRN 03/10/15 [History] Vitamin B Complex 1 each PO DAILY 07/05/17 [History] Celecoxib [CeleBREX] 100 mg PO BID 08/03/18 [History] DULoxetine [Cymbalta] 30 mg PO DAILY 08/03/18 [History] Gabapentin [Neurontin] 300 mg PO TID 08/03/18 [History] Lidocaine [Lidoderm] 1 patch TOP .Q12H 08/03/18 [History] Liraglutide [Victoza] 0.6 mg PO DAILY 08/03/18 [History] Lisinopril 20 mg PO DAILY 08/03/18 [History] Magnesium Oxide [Magnesium] 400 mg PO DAILY 08/03/18 [History] Tamsulosin [Flomax] 0.4 mg PO DAILY 08/03/18 [History] glyBURIDE/Metformin HCl [Glyburid-Metformin 1.25-250 mg] 1 tab PO BIDMEALS 08/03 [History] Past Medical History HEENT History: Reports: None Cardiovascular History: Reports: High Cholesterol, Hypertension Respiratory History: Reports: Asthma Other Respiratory History: seasonal allergies Gastrointestinal History: Reports: None Genitourinary History: Reports: Hydronephrosis, Pyelonephritis, Renal Calculus, Other (See Below) Other Genitourinary History: ureteral stent 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: , Spontaneous Musculoskeletal History: Reports: Back Pain, Chronic, Fracture Other Musculoskeletal History: spondylitis Neurological History: Reports: Headaches, Chronic Psychiatric History: Reports: Addiction, Anxiety, Depression Endocrine/Metabolic History: Reports: None, Obesity/BMI 30+ Hematologic History: Reports: None Immunologic History: Reports: None Oncologic (Cancer) History: Reports: None Dermatologic History: Reports: None - Infectious Disease History Infectious Disease History: Reports: MRSA, Rheumatic Fever - Past Surgical History Head Surgeries/Procedures: Reports: None HEENT Surgical History: Reports: None Cardiovascular Surgical History: Reports: None Respiratory Surgical History: Reports: None GI Surgical History: Reports: Cholecystectomy, EGD, Hernia Repair/Other Female Surgical History: Reports: Section, Cystoscopy, Ureteral Stent, Other (See Below) Other Female Surgeries/Procedures: REMOVAL OF URTER STENT Endocrine Surgical History: Reports: None Neurological Surgical History: Reports: Discectomy, Laminectomy Musculoskeletal Surgical History: Reports: Carpal Tunnel, Other (See Below) Other Musculoskeletal Surgeries/Procedures:: BACK SURGERY DISECTOMY Oncologic Surgical History: Reports: None Social & Family History - Family History Family Medical History: Noncontributory - Caffeine Use Caffeine Use: Reports: Coffee Caffeine Use Comment: 6 cups of coffee daily - Living Situation & Occupation Living situation: Reports: , with Family Occupation: Employed Review of Systems - Review of Systems Review Of Systems: ROS reveals no pertinent complaints other than HPI. ED EXAM, GENERAL - Physical Exam Exam: See Below Exam Limited By: No Limitations General Appearance: Alert, WD/WN, No Apparent Distress Peripheral Pulses: 2+: Brachial (L), Brachial (R), Radial (L), Radial (R) Extremities: No: Normal Inspection (There is a small amount of swelling right at the distal aspect of the right dorsal wrist. There is no bruising swelling ecchymosis bony deformities or step-offs. There is no tenderness. The patient is able to flex and extend her fingers appropriately to all the joints. She can flex the wrist but she cannot extend her right wrist. She has no loss of 2 point discrimination on the hand. The rest of the right upper extremity is unremarkable. She can flex and extend at the elbow with normal sensation she has full range of motion of the right shoulder with normal sensation. The rest of the right upper extremity including the shoulder is atraumatic.) Neurological: Alert, Oriented Course - Vital Signs Last Recorded V/S: Last Vital Signs Temp 36.8 C 12/18/18 12:15 Pulse 80 12/18/18 12:15 Resp 18 12/18/18 12:15 BP 125/60 12/18/18 12:15 Pulse Ox 99 12/18/18 12:15 - Radiology Interpretation Free Text/Narrative:: xray negative per radiology. - Re-Assessments/Exams Free Text/Narrative Re-Assessment/Exam: 12/18/18 19:39 I spoke with a handsurgeon DR. Rodgers at [facility] in [place]. HPI ER COURSE findings and concerns were relayed to him. HE advised a splint at this time and MRI on thursday with PCP. No emergent need at this time. short arm volar surface splint well-padded was placed to the right arm by myself with fiberglass and placed in the anatomical position in neutral. CMS was intact after the application. Departure - Departure Time of Disposition: 13:37 Disposition: Home, Self-Care 01 Clinical Impression: Wrist arthralgia Qualifiers: Laterality: right Qualified Code(s): M25.531 - Pain in right wrist - Discharge Information Forms: ED Department Discharge Additional Instructions: Tylenol and or Ibuprofen as needed for pain. Wear splint at all times. See your primary care provider on thursday for a MRI referral of the wrist. Return to the ED if new or worsening symptoms. - Assessment/Plan Assessment:: Right wrist lost of extension unknown cause. Plan: Tylenol and or Ibuprofen as needed for pain. Wear splint at all times. See your primary care provider on thursday for a MRI referral of the wrist. Return to the ED if new or worsening symptoms.
[2018-12-18 13:31] VITALS: BP 125/60
--- NOTE | 2018-12-18 13:47 | CR ---
Clinical history: 53-year-old female with right wrist swelling (unable to extend). Interpretation: Mild soft tissue swelling. No sign of underlying wrist fracture (acute or healing) or radiocarpal dislocation. No foreign bodies. Minimal arthritic degenerative change.
== END 2018-12-18 13:52 | disposition home or self-care (01) ==
LOC: DL.ED 11:56
DX: M25.531 Pain in right wrist (principal); I10 Essential (primary) hypertension; F41.9 Anxiety disorder, unspecified; F32.9 Major depressive disorder, single episode, unspecified; E66.9 Obesity, unspecified; Z88.8 Allergy status to other drugs, medicaments and biological substances; Z79.899 Other long term (current) drug therapy
CPT/HCPCS: 73110-RT; 99283-25

== ENCOUNTER 2021-07-04 16:55 | Emergency (ER) | payer OTHER ==
[2021-07-04 17:09] VITALS: BP 137/88; PULSE 101
--- NOTE | 2021-07-04 18:14 | EDM.PDOC ---
<Luis Sun M - Last Filed: 07/04/21 19:13> ED HPI GENERAL MEDICAL PROBLEM - General Chief Complaint: Neuro Symptoms/Deficits Stated Complaint: AMBULANCE Time Seen by Provider: 07/04/21 17:30 - Related Data Allergies Allergy/AdvReac Type Severity Reaction Status Date / Time bupropion HCl Allergy Anxiety Verified 08/05/18 09:49 [From Wellbutrin] buspirone HCl [From BuSpar] Allergy Anxiety Verified 08/05/18 09:49 venlafaxine HCl Allergy Anxiety Verified 08/05/18 09:49 [From Effexor] Home Meds: Home Meds atorvaSTATin [Lipitor] 10 mg PO DAILY 03/08/15 [History] Acetaminophen [Tylenol Extra Strength] 1,000 mg PO Q6H PRN 03/10/15 [History] Albuterol [Proventil HFA] 1 puff INH QID PRN 03/10/15 [History] Vitamin B Complex 1 each PO DAILY 07/05/17 [History] Celecoxib [CeleBREX] 100 mg PO BID 08/03/18 [History] DULoxetine [Cymbalta] 30 mg PO DAILY 08/03/18 [History] Gabapentin [Neurontin] 300 mg PO TID 08/03/18 [History] Lidocaine [Lidoderm] 1 patch TOP .Q12H 08/03/18 [History] Liraglutide [Victoza] 0.6 mg PO DAILY 08/03/18 [History] Lisinopril 20 mg PO DAILY 08/03/18 [History] Magnesium Oxide [Magnesium] 400 mg PO DAILY 08/03/18 [History] Tamsulosin [Flomax] 0.4 mg PO DAILY 08/03/18 [History] glyBURIDE/Metformin HCl [Glyburid-Metformin 1.25-250 mg] 1 tab PO BIDMEALS 08/03/18 [History] Departure - Departure Time of Disposition: 19:13 Disposition: Home, Self-Care 01 Condition: Fair Clinical Impression: Intermittent vertigo - Discharge Information *PRESCRIPTION DRUG MONITORING PROGRAM REVIEWED*: Not Applicable *COPY OF PRESCRIPTION DRUG MONITORING REPORT IN PATIENT MARGO: Not Applicable Instructions: Vertigo, Facb-[id number], Dizziness, [id number] Forms: ED Department Discharge Care Plan Goals: The patient was advised of the examination, lab, EKG and x-ray results during the visit. The patient was encouraged to increase her oral fluid intake and eat balanced meals. If the patient has any additional symptoms or concerns, the patient was encouraged to either return to the emergency department or visit her primary care facility. <Concha Yo - Last Filed: 07/05/21 07:18> ED HPI GENERAL MEDICAL PROBLEM - General Source of Information: Reports: Patient, EMS, RN, RN Notes Reviewed History Limitations: Reports: No Limitations - History of Present Illness INITIAL COMMENTS - FREE TEXT/NARRATIVE: Patti is a 56 y/o female with a history of who presents to the ED via [facility] with complaints of transient vertigo. The patient reports she experienced a bout of dizziness approximately one hour prior that took about 20 minutes to resolve. The patient reports she ate breakfast at 0800 today and has been performing demanding physical labor since; she did not eat lunch. She denies current dizziness. She denies recent illness, fever, shaking chills, cough, chest pain/pressure, palpitations, nausea, vomiting, abdominal pain, dysuria, or diarrhea. She denies dietary or medications changes. She attests to smoking 1/2 pack of cigarettes per day; she denies alcohol and recreational drug use. 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: , Spontaneous Musculoskeletal History: Reports: Back Pain, Chronic, Fracture Other Musculoskeletal History: spondylitis Neurological History: Reports: Headaches, Chronic Psychiatric History: Reports: Addiction, Anxiety, Depression Endocrine/Metabolic History: Reports: None, Obesity/BMI 30+ Hematologic History: Reports: None Immunologic History: Reports: None Oncologic (Cancer) History: Reports: None Dermatologic History: Reports: None - Infectious Disease History Infectious Disease History: Reports: MRSA, Rheumatic Fever - Past Surgical History Head Surgeries/Procedures: Reports: None HEENT Surgical History: Reports: None Cardiovascular Surgical History: Reports: None Respiratory Surgical History: Reports: None GI Surgical History: Reports: Cholecystectomy, EGD, Hernia Repair/Other Female Surgical History: Reports: Section, Cystoscopy, Ureteral St ent, Other (See Below) Other Female Surgeries/Procedures: REMOVAL OF URTER STENT Endocrine Surgical History: Reports: None Neurological Surgical History: Reports: Discectomy, Laminectomy Musculoskeletal Surgical History: Reports: Carpal Tunnel, Other (See Below) Other Musculoskeletal Surgeries/Procedures:: BACK SURGERY DISECTOMY Oncologic Surgical History: Reports: None Social & Family History - Family History Family Medical History: No Pertinent Family History - Tobacco Use Tobacco Use Status *Q: Current Every Day Tobacco User Years of Tobacco use: 30 Packs/Tins Daily: 1 - Caffeine Use Caffeine Use: Reports: Coffee Caffeine Use Comment: 6 cups of coffee daily - Recreational Drug Use Recreational Drug Use: No - Living Situation & Occupation Living situation: Reports: , with Family Occupation: Employed ED ROS GENERAL - Review of Systems Review Of Systems: Comprehensive ROS is negative, except as noted in HPI. ED EXAM, NEURO - Physical Exam Exam: See Below Exam Limited By: No Limitations General Appearance: Alert, No Apparent Distress Eye Exam: Bilateral Eye: EOMI, Normal Inspection, PERRL (3mm), Other (No nystagmus) Ears: Normal External Exam. No: Normal Canal (Cerumen impaction on L), Normal TMs (MAYCO left TM d/t cerumen impaction) Nose: Normal Inspection, Normal Mucosa, No Blood Throat/Mouth: Normal Inspection, Normal Oropharynx, Normal Voice, No Airway Compromise Head Exam: Atraumatic, Normocephalic Neck: Normal Inspection, Supple, Non-Tender, Full Range of Motion Respiratory/Chest: No Respiratory Distress, No Accessory Muscle Use, Chest Non- Tender, Wheezing (Expiratory on RUL and RLL). No: Crackles, Rales, Rhonchi, Stridor, Retractions Cardiovascular: Normal Peripheral Pulses, Regular Rate, Rhythm, No Edema, No Gallop, No JVD, No Murmur, No Rub GI/Abdominal: Normal Bowel Sounds, Soft, Non-Tender, No Distention, No Abnormal Bruit, No Mass (Female) Exam: Deferred Rectal (Female) Exam: Deferred Neurological: Alert, Normal Mood/Affect, Normal Dorsiflexion, CN II-XII Intact, Normal Plantar Flexion, Normal Gait, Normal Reflexes, No Motor/Sensory Deficits, Oriented x 3, Withdraws to Pain, Straight Leg Raise (L), Straight Leg Raise (R). No: Abnormal Finger to Nose, Abnormal Sensation, Abnormal Light Touch, Abnormal Motor, Abnormal Pin Prick, Abn 2 Pt Discrimination, Saddle Anesthesia, Difficulty Walking Back Exam: Normal Inspection, Full Range of Motion Extremities: Normal Inspection, Normal Range of Motion, Non-Tender, No Pedal Edema, Normal Capillary Refill Psychiatric: Normal Affect, Normal Mood Skin Exam: Warm, Dry, Intact, Normal Color, No Rash. No: Cyanosis, Jaundice, Mottled, Pallor #1 Interpretation EKG Date: 07/04/21 Time: 18:02 Rhythm: NSR Rate (Beats/Min): 90 [place]: Normal P-Wave: Present QRS: Normal ST-T: Normal QT: Normal NC/PQ Interval: 0.193 Comparison: Change From Previous EKG (01/04/14) EKG Interpretation Comments: NSR; No evidence of acute myocardial ischemia Course - Vital Signs Last Recorded V/S: Last Vital Signs Temp 99.8 F 07/04/21 17:07 Pulse 101 H 07/04/21 17:07 Resp 13 07/04/21 17:07 BP 137/88 07/04/21 17:07 Pulse Ox 95 07/04/21 17:07 - Orders/Labs/Meds Labs: Laboratory Tests 07/04/21 07/04/21 07/04/21 Range/Units 17:53 17:58 18:15 WBC 13.3 H (5.0-10.0) 10^3/uL RBC 4.41 (4.2-5.4) 10^6/uL Hgb 13.5 (12.0-16.0) g/dL Hct 41.0 (37.0-47.0) % MCV 93.0 (80-100) fL MCH 30.6 (27.0-34.0) pg MCHC 32.9 L (33.0-35.0) g/dL Plt Count 414 (150-450) 10^3/uL Neut % (Auto) 72.3 (42.2-75.2) % Lymph % (Auto) 17.8 L (20.5-50.1) % [place] % (Auto) 8.0 (2-8) % Eos % (Auto) 1.7 (1.0-3.0) % Baso % (Auto) 0.2 (0.0-1.0) % Sodium (136-145) mmol/L Potassium (3.5-5.1) mmol/L Chloride (98-107) mmol/L Carbon Dioxide (21-32) mmol/L Anion Gap (7-13) mEq/L BUN (7-18) mg/dL Creatinine (0.55-1.02) mg/dL Est Cr Clr Drug Dosing mL/min Estimated GFR (MDRD) BUN/Creatinine Ratio (No establ ref range) Glucose (70-99) mg/dL Lactic Acid (0.4-2.0) mmol/L Calcium (8.5-10.1) mg/dL Magnesium (1.8-2.4) mg/dL Total Bilirubin (0.2-1.0) mg/dL AST (15-37) U/L ALT (14-59) U/L Alkaline Phosphatase (46-116) U/L Troponin I High Sens (<=51) pg/mL C-Reactive Protein (0.0-0.9) mg/dL Total Protein (6.4-8.2) g/dL Albumin (3.4-5.0) g/dL Globulin Albumin/Globulin Ratio Urine Color Yellow (YELLOW) Urine Appearance Clear (CLEAR) Urine pH 6.0 (5.0-9.0) Ur Specific [place] 1.020 (1.005-1.030) Urine Protein Negative (NEGATIVE) Urine Glucose (UA) >=1000 H (NEGATIVE) Urine Ketones Negative (NEGATIVE) Urine Occult Blood Negative (NEGATIVE) Urine Nitrite Negative (NEGATIVE) Urine Bilirubin Negative (NEGATIVE) Urine Urobilinogen 0.2 (0.2-1.0) mg/dL Ur Leukocyte Esterase Negative (NEGATIVE) Urine Opiates Screen Negative (NEGATIVE) Ur Oxycodone Screen Negative (NEGATIVE) Urine Methadone Screen Negative (NEGATIVE) Ur Barbiturates Screen Negative (NEGATIVE) U Tricyclic Antidepress Negative (NEGATIVE) Ur Phencyclidine Scrn Negative (NEGATIVE) Ur Amphetamine Screen Negative (NEGATIVE) U Methamphetamines Scrn Negative (NEGATIVE) Urine MDMA Screen Negative (NEGATIVE) U Benzodiazepines Scrn Negative (NEGATIVE) Urine Cocaine Screen Negative (NEGATIVE) U Marijuana (THC) Screen Negative (NEGATIVE) Ethyl Alcohol (0) mg/dL 07/04/21 07/04/21 Range/Units 18:15 18:15 WBC (5.0-10.0) 10^3/uL RBC (4.2-5.4) 10^6/uL Hgb (12.0-16.0) g/dL Hct (37.0-47.0) % MCV (80-100) fL MCH (27.0-34.0) pg MCHC (33.0-35.0) g/dL Plt Count (150-450) 10^3/uL Neut % (Auto) (42.2-75.2) % Lymph % (Auto) (20.5-50.1) % [place] % (Auto) (2-8) % Eos % (Auto) (1.0-3.0) % Baso % (Auto) (0.0-1.0) % Sodium 142 (136-145) mmol/L Potassium 3.9 (3.5-5.1) mmol/L Chloride 104 (98-107) mmol/L Carbon Dioxide 27 (21-32) mmol/L Anion Gap 14.9 H (7-13) mEq/L BUN 16 (7-18) mg/dL Creatinine 0.93 (0.55-1.02) mg/dL Est Cr Clr Drug Dosing 63.98 mL/min Estimated GFR (MDRD) > 60 BUN/Creatinine Ratio 17.2 (No establ ref range) Glucose 125 H (70-99) mg/dL Lactic Acid 0.9 (0.4-2.0) mmol/L Calcium 8.9 (8.5-10.1) mg/dL Magnesium 1.8 (1.8-2.4) mg/dL Total Bilirubin 0.3 (0.2-1.0) mg/dL AST 17 (15-37) U/L ALT 37 (14-59) U/L Alkaline Phosphatase 117 H (46-116) U/L Troponin I High Sens 9 (<=51) pg/mL C-Reactive Protein 1.0 H (0.0-0.9) mg/dL Total Protein 7.7 (6.4-8.2) g/dL Albumin 3.6 (3.4-5.0) g/dL Globulin 4.1 Albumin/Globulin Ratio 0.9 Urine Color (YELLOW) Urine Appearance (CLEAR) Urine pH (5.0-9.0) Ur Specific [place] (1.005-1.030) Urine Protein (NEGATIVE) Urine Glucose (UA) (NEGATIVE) Urine Ketones (NEGATIVE) Urine Occult Blood (NEGATIVE) Urine Nitrite (NEGATIVE) Urine Bilirubin (NEGATIVE) Urine Urobilinogen (0.2-1.0) mg/dL Ur Leukocyte Esterase (NEGATIVE) Urine Opiates Screen (NEGATIVE) Ur Oxycodone Screen (NEGATIVE) Urine Methadone Screen (NEGATIVE) Ur Barbiturates Screen (NEGATIVE) U Tricyclic Antidepress (NEGATIVE) Ur Phencyclidine Scrn (NEGATIVE) Ur Amphetamine Screen (NEGATIVE) U Methamphetamines Scrn (NEGATIVE) Urine MDMA Screen (NEGATIVE) U Benzodiazepines Scrn (NEGATIVE) Urine Cocaine Screen (NEGATIVE) U Marijuana (THC) Screen (NEGATIVE) Ethyl Alcohol < 3 (0) mg/dL - Radiology Interpretation Free Text/Narrative:: [facility] Final Radiology Report Call: [phone] assistance Online chat: [email or web address] Name: PATTI GARBER Age: 56Years F Date: 07/04/2021 SSN: -- : [id number] Study: CR CHEST 1V FRONTAL Requesting Physician: Concha Yo Images: 1 Addl Studies: Provided Clinical History: Expiratory wheezes to RUL and RLL Contrast: Contrast Medium: Contrast Amount: Contrast Method: CONFIDENTIALITY STATEMENT This report is intended only for use by the referring physician, and only in accordance with law. If you received this in error, call [phone]. Page 1 of 1 PROCEDURE INFORMATION: Exam: XR Chest Exam date and time: 07/04/2021 5:58 PM Age: 56 years old Clinical indication: Wheezing; Additional info: Expiratory wheezes to rul and rll TECHNIQUE: Imaging protocol: XR of the chest. Views: 1 view. COMPARISON: No relevant prior studies available. FINDINGS: Lungs: Lungs are clear bilaterally. Pleural spaces: No pleural effusion. No pneumothorax. Heart/Mediastinum: The cardiac silhouette is mildly enlarged. Mediastinal contours are unremarkable. Bones/joints: Unremarkable for age. IMPRESSION: 1. No acute cardiopulmonary process. 2. Incidental/nonacute findings are listed in the report. Thank you for allowing us to participate in the care of your patient. Dictated and Authenticated by: Katey Jean MD 07/04/2021 6:47 PM Central Time ([place] & [place]) - Re-Assessments/Exams Free Text/Narrative Re-Assessment/Exam: 07/04/21 Care of patient transferred to Josh Sun PA-C at 1900. Sepsis Event Note (ED) - Evaluation Sepsis Screening Result: No Definite Risk
[2021-07-04 18:39] LABS: ANION GAP 14.9 mEq/L (7-13); CHLORIDE,CL 104 mmol/L (98-107); SODIUM,NA 142 mmol/L (136-145)
--- NOTE | 2021-07-04 18:47 | CR ---
PROCEDURE INFORMATION: Exam: XR Chest Exam date and time: 07/04/2021 5:58 PM Age: 56 years old Clinical indication: Wheezing; Additional info: Expiratory wheezes to rul and rll TECHNIQUE: Imaging protocol: XR of the chest. Views: 1 view. COMPARISON: No relevant prior studies available. FINDINGS: Lungs: Lungs are clear bilaterally. Pleural spaces: No pleural effusion. No pneumothorax. Heart/Mediastinum: The cardiac silhouette is mildly enlarged. Mediastinal contours are unremarkable. Bones/joints: Unremarkable for age. IMPRESSION: 1. No acute cardiopulmonary process. 2. Incidental/nonacute findings are listed in the report.
[2021-07-04 20:10] LABS: AMPHETAMINES,URINE NEGATIVE (NEGATIVE); BARBITURATES,URINE NEGATIVE (NEGATIVE); BENZODIAZEPINE,URINE NEGATIVE (NEGATIVE); MDMA (ECSTASY), URINE NEGATIVE (NEGATIVE); METHADONE,URINE NEGATIVE (NEGATIVE); METHAMPHETAMINES,URINE NEGATIVE (NEGATIVE); OPIATES,URINE NEGATIVE (NEGATIVE); PHENCYCLIDINE,URINE NEGATIVE (NEGATIVE); TCA,URINE NEGATIVE (NEGATIVE)
[2021-07-04 20:11] LABS: OXYCODONE,URINE NEGATIVE (NEGATIVE)
== END 2021-07-04 19:22 | disposition home or self-care (01) ==
LOC: DL.ED 16:55
DX: R42 Dizziness and giddiness (principal); E78.00 Pure hypercholesterolemia, unspecified; I10 Essential (primary) hypertension; E66.9 Obesity, unspecified; Z72.0 Tobacco use; Z68.41 Body mass index [BMI] 40.0-44.9, adult
CPT/HCPCS: 36415; 71045; 80053; 80305-QW; 80307; 81003; 83605; 83735; 84484; 85025; 86140; 93005; 99284-25

== ENCOUNTER 2023-12-20 07:27 | Emergency (ER) | payer MEDICAID ==
[2023-12-20 07:23] VITALS: BP 155/80; PULSE 85
[2023-12-20 07:31] LABS: BASOPHILS PERCENT AUTO 0.3 % (0.0-1.0); EOSINOPHILS PERCENT AUTO 3.6 % (1.0-3.0); HEMATOCRIT 39.3 % (37.0-47.0); HEMOGLOBIN 12.8 g/dL (12.0-16.0); LYMPHOCYTES PERCENT AUTO 33.1 % (20.5-50.1); MEAN CORPUSCULAR HEMOGLOBIN 30.8 pg (27.0-34.0); MEAN CORPUSCULAR HGB CONC 32.6 g/dL (33.0-35.0); MEAN CORPUSCULAR VOLUME 94.7 fL (80-100); MONOCYTES PERCENT AUTO 12.4 % (2-8); NEUTROPHILS PERCENT AUTO 50.6 % (42.2-75.2); PLATELET COUNT,PLT 436 10^3/uL (150-450); RED BLOOD CELL COUNT 4.15 10^6/uL (4.2-5.4); WHITE BLOOD CELL COUNT,WBC 10.6 10^3/uL (5.0-10.0)
[2023-12-20 07:53] LABS: A/G RATIO 0.9; ALBUMIN 3.6 g/dL (3.4-5.0); ANION GAP 12.3 mEq/L (7-13); BILIRUBIN TOTAL 0.5 mg/dL (0.2-1.0); BUN/CREATININE RATIO 19.1 (No establ ref range); CALCIUM 8.7 mg/dL (8.5-10.1); CREATININE 0.94 mg/dL (0.55-1.02); EST CRCL DRUG DOSING (CG) 64.21 mL/min; POTASSIUM,K 4.3 mmol/L (3.5-5.1); PROTEIN TOTAL,TP 7.7 g/dL (6.4-8.2)
== END 2023-12-20 09:05 | disposition home or self-care (01) ==
LOC: DL.ED 07:27
DX: R07.89 Other chest pain (principal); E11.9 Type 2 diabetes mellitus without complications; I10 Essential (primary) hypertension; E78.5 Hyperlipidemia, unspecified; Z88.8 Allergy status to other drugs, medicaments and biological substances; E78.00 Pure hypercholesterolemia, unspecified; J45.909 Unspecified asthma, uncomplicated; E66.9 Obesity, unspecified; Z79.51 Long term (current) use of inhaled steroids; Z79.899 Other long term (current) drug therapy; Z79.84 Long term (current) use of oral hypoglycemic drugs; Z90.49 Acquired absence of other specified parts of digestive tract; Z68.41 Body mass index [BMI] 40.0-44.9, adult
CPT/HCPCS: 36415; 71045; 80053; 84484; 85025; 93005; 99285